=== PATIENT | male | born 1975 | race Caucasian/White ===

== ENCOUNTER 2021-07-08 17:42 | Inpatient (IN) | payer OTHER ==
[2021-07-08] MEDS ORDERED: LORazepam 2 MG/ML INJ IM STA (17:50)
[2021-07-08] MEDS ORDERED: diphenhydrAMINE 50 MG/ML 1 ML VIAL IM STA (17:50)
[2021-07-08] MEDS ORDERED: HALOPERIDOL LACTATE 5 MG/ML 1 ML VIAL IM STA (17:50)
[2021-07-08 19:22] LABS: Basophils # (A) 0.1 k/uL (0-0.2); Basophils % (A) 0 %; Eosinophils # (A) 0.2 k/uL (0-0.7); Eosinophils % (A) 1 %; HCT 39.5 % (39.0-53.0); HGB 13.6 gm/dL (13.0-17.5); Lymphocytes # (A) 1.3 k/uL (1.0-4.8); Lymphocytes % (A) 8 %; MCH 28.5 pg (25.0-35.0); MCHC 34.5 g/dL (31.0-37.0); MCV 82.5 fL (80.0-100.0); Mean Platelet Volume 8.1; Monocytes # (A) 0.6 k/uL (0-1.0); Monocytes % (A) 4 %; Neutrophils # (A) 13.5 k/uL (1.3-7.7); Neutrophils % (A) 86 %; Platelet Count 362 k/uL (150-450); RBC 4.78 m/uL (4.30-5.90); RDW 13.5 % (11.5-15.5); WBC 15.7 k/uL (3.8-10.6)
[2021-07-08 19:29] LABS: Lactic Acid, Venous 1.8 mmol/L (0.7-2.0)
[2021-07-08 19:35] LABS: ALT 23 U/L (4-49); AST 28 U/L (17-59); African American GFR (CKD) 41 (>60 ml/min/1.73 sqM); Albumin 4.1 g/dL (3.5-5.0); Alcohol <10 mg/dL; Alkaline Phosphatase 84 U/L (38-126); Anion Gap 12 mmol/L; Blood Urea Nitrogen 28 mg/dL (9-20); Calcium 9.5 mg/dL (8.4-10.2); Carbon Dioxide 18 mmol/L (22-30); Chloride 108 mmol/L (98-107); Creatine Kinase 387 U/L (55-170); Glucose 127 mg/dL (74-99); Lipase 44 U/L (23-300); Magnesium 2.1 mg/dL (1.6-2.3); Non-African American GFR(CKD) 36 (>60 ml/min/1.73 sqM); Potassium 3.8 mmol/L (3.5-5.1); Sodium 138 mmol/L (137-145); Total Bilirubin 0.4 mg/dL (0.2-1.3); Total Protein 7.2 g/dL (6.3-8.2)
--- NOTE | 2021-07-08 20:03 | XR ---
EXAMINATION TYPE: XR chest 1V portable DATE OF EXAM: 07/08/2021 COMPARISON: 04/16/2011 HISTORY: Confusion TECHNIQUE: Single view FINDINGS: There is mild increased pulmonary interstitial density. Heart size is normal. There is no g ross heart failure. There is poor inspiration. IMPRESSION: Poor inspiration. Mild increased interstitial markings compared to old exam. No pulmonary consolidation or heart failure.
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
[2021-07-08 20:19] LABS: Appearance,Urine Clear (Clear); Bacteria,Urine Occasional /hpf; Bilirubin,Urine Negative (Negative); Blood,Urine Negative (Negative); Color,Urine Yellow; Glucose,Urine (UA) Negative (Negative); Hyaline Casts,Urine 5 /lpf (0-2); Ketones,Urine Negative (Negative); Leukocyte Esterase,Urine Negative (Negative); Mucus,Urine Occasional /hpf; Nitrite,Urine Negative (Negative); PH, Urine 5.5 (5.0-8.0); Protein,Urine 1+ (Negative); RBC,Urine 1 /hpf (0-5); Specific Gravity,Urine 1.026 (1.001-1.035); Squamous Epithelial Cell,Urine <1 /hpf (0-4); Urobilinogen,Urine <2.0 mg/dL (<2.0); WBC,Urine 3 /hpf (0-5)
[2021-07-08 20:31] LABS: Amphetamine Screen,Urine Detected (NotDetected); Barbiturate Screen,Urine Not Detected (NotDetected); Benzodiazepines Screen,Urine Not Detected (NotDetected); Cocaine Screen,Urine Not Detected (NotDetected); Methadone Screen, Urine Not Detected (NotDetected); Opiate Screen,Urine Not Detected (NotDetected); Oxycodone Screen, Urine Not Detected (NotDetected); Phencyclidine Screen,Urine Not Detected (NotDetected); Tricyclic Antidepressant,Urine Not Detected (NotDetected); Urn Cannabinoid Scrn Detected (NotDetected)
--- NOTE | 2021-07-08 20:33 | CT ---
EXAMINATION TYPE: CT brain wo con DATE OF EXAM: 07/08/2021 COMPARISON: 12/06/2009 HISTORY: Altered mental status. CT DLP: mGycm Automated exposure control for dose reduction was used. Ventricles have normal size. There is no mass effect nor midline shift. There is no sign of intracran ial hemorrhage. The calvarium is intact. Skull base is intact. IMPRESSION: Normal unenhanced head CT scan. No change.
[2021-07-08] MEDS ORDERED: NALOXONE 0.4 MG/ML 1 ML VIAL IV PRN (22:18)
[2021-07-08] MEDS ORDERED: SODIUM CHLORIDE 0.9% 1,000 ML IV STA (22:23)
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
[2021-07-08] MEDS: SODIUM CHLORIDE 0.9% 1,000 ML IV SCH (22:49)
[2021-07-09] MEDS: SODIUM CHLORIDE 0.9% 1,000 ML IV SCH (07:15)
[2021-07-09 10:39] LABS: African American GFR (CKD) 59.4 (60.0-200.0); Albumin 3.8 g/dL (3.8-4.9); Albumin/Globulin Ratio 1.58 (1.60-3.17); BUN/Creat Ratio 15.13 Ratio (12.00-20.00); Blood Urea Nitrogen 24.2 mg/dL (9.0-27.0); Globulin 2.4 g/dL (1.6-3.3); Non-African American GFR(CKD) 51.3 (60.0-200.0); Potassium 4.3 mmol/L (3.5-5.5); Total Bilirubin 0.4 mg/dL (0.30-1.20); Total Protein 6.2 g/dL (6.2-8.2)
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
--- NOTE | 2021-07-09 13:01 | P.PN ---
Subjective Progress Note Date: 07/09/21 No new complaints. Kidney function is improving Objective - Vital Signs Vital signs: Vital Signs Temp 98.7 F 07/09/21 06:46 Pulse 90 07/09/21 10:13 Resp 16 07/09/21 10:13 BP 154/103 07/09/21 10:13 Pulse Ox 98 07/09/21 10:13 Intake & Output 07/08/21 07/09/21 07/09/21 18:59 06:59 18:59 Weight 113.398 kg - Exam Gen: Asleep, resting comfortably HEENT: normocephalic, atraumatic, good hearing acuity, moist mucous membranes Resp: good air exchange, breathing comfortably with no accessory muscle use CVS: good distal perfusion x 4, GI: soft, NTTP, ND : no SPT, no CVAT, hickman catheter not present MSK: no pitting edema, no clubbing Neuro: non-focal, moving all extremities - Labs CBC & Chem 7: 07/08/21 19:12 07/09/21 06:50 Labs: Abnormal Lab Results - Last 24 Hours (Table) 07/08/21 07/08/21 07/08/21 Range/Units 19:12 19:12 19:12 WBC 15.7 H (3.8-10.6) k/uL Neutrophils # 13.5 H (1.3-7.7) k/uL Chloride 108 H (98-107) mmol/L Carbon Dioxide 18 L (22-30) mmol/L BUN 28 H (9-20) mg/dL Creatinine 2.16 H (0.66-1.25) mg/dL Est GFR (CKD-EPI)AfAm (60.0-200.0) Est GFR (CKD-EPI)NonAf (60.0-200.0) Glucose 127 H (74-99) mg/dL Creatine Kinase 387 H (55-170) U/L Albumin/Globulin Ratio (1.60-3.17) g/dL Urine Protein (Negative) Urine Bacteria (None) /hpf Hyaline Casts (0-2) /lpf Urine Mucus (None) /hpf Ur Amphetamines Screen Detected H (NotDetected) U Methamphetamines Scrn Detected H (NotDetected) U Marijuana (THC) Screen Detected H (NotDetected) 07/08/21 07/09/21 Range/Units 20:01 06:50 WBC (3.8-10.6) k/uL Neutrophils # (1.3-7.7) k/uL Chloride (98-107) mmol/L Carbon Dioxide (22-30) mmol/L BUN (9-20) mg/dL Creatinine 1.6 H (0.66-1.25) mg/dL Est GFR (CKD-EPI)AfAm 59.4 L (60.0-200.0) Est GFR (CKD-EPI)NonAf 51.3 L (60.0-200.0) Glucose (74-99) mg/dL Creatine Kinase (55-170) U/L Albumin/Globulin Ratio 1.58 L (1.60-3.17) g/dL Urine Protein 1+ H (Negative) Urine Bacteria Occasional H (None) /hpf Hyaline Casts 5 H (0-2) /lpf Urine Mucus Occasional H (None) /hpf Ur Amphetamines Screen (NotDetected) U Methamphetamines Scrn (NotDetected) U Marijuana (THC) Screen (NotDetected) Assessment and Plan Assessment: acute psychosis polysubstance abuse DOMINGO psych follow up antipsychotics for aggressive behavior benzo PRN for anxiety and agitation IVF hydration with normal saline seizure precautions 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
[2021-07-09] MEDS: ACETAMINOPHEN TAB 325 MG TAB PO PRN (15:05)
[2021-07-09] MEDS ORDERED: hydrALAZINE HCL 25 MG TAB PO STA (23:37)
[2021-07-10] MEDS: ACETAMINOPHEN TAB 325 MG TAB PO PRN (03:39)
[2021-07-10] MEDS: SODIUM CHLORIDE 0.9% 1,000 ML IV SCH ×3 (05:41→07:49)
[2021-07-10 06:24] LABS: Basophils # (A) 0.1 k/uL (0-0.2); Basophils % (A) 1 %; Eosinophils # (A) 0.3 k/uL (0-0.7); Eosinophils % (A) 3 %; HCT 37.8 % (39.0-53.0); HGB 12.8 gm/dL (13.0-17.5); Lymphocytes # (A) 2.4 k/uL (1.0-4.8); Lymphocytes % (A) 28 %; MCH 28.7 pg (25.0-35.0); MCV 84.4 fL (80.0-100.0); Mean Platelet Volume 8.5; Monocytes # (A) 0.6 k/uL (0-1.0); Monocytes % (A) 7 %; Neutrophils # (A) 5.2 k/uL (1.3-7.7); Neutrophils % (A) 60 %; Platelet Count 293 k/uL (150-450); RBC 4.48 m/uL (4.30-5.90); RDW 13.4 % (11.5-15.5); WBC 8.7 k/uL (3.8-10.6)
[2021-07-10 09:29] LABS: African American GFR (CKD) 69.8 (60.0-200.0); BUN/Creat Ratio 12.29 Ratio (12.00-20.00); Blood Urea Nitrogen 17.2 mg/dL (9.0-27.0); Calcium 8.9 mg/dL (8.7-10.3); Magnesium 2.1 mg/dL (1.5-2.4); Non-African American GFR(CKD) 60.2 (60.0-200.0)
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
[2021-07-10 12:42] VITALS: BP 166/101; PULSE 75; RESP 18; TEMP 97.8
== END 2021-07-10 14:53 | DRG 885 ==
LOC: EC 17:42 → 5NMEDONC 22:18 → 3MHU 07-10 14:44
PROVIDERS: ADMIT Internal Medicine; ATTEND Internal Medicine
DX: F23 Brief psychotic disorder (principal); N17.9 Acute kidney failure, unspecified; S21.139A Puncture wound without foreign body of unspecified front wall of thorax without penetration into thoracic cavity, initial encounter; E87.2 Acidosis; E86.0 Dehydration; Z20.822 Contact with and (suspected) exposure to COVID-19; F19.10 Other psychoactive substance abuse, uncomplicated; S21.032A Puncture wound without foreign body of left breast, initial encounter; F15.90 Other stimulant use, unspecified, uncomplicated; R45.6 Violent behavior; F41.9 Anxiety disorder, unspecified; F17.210 Nicotine dependence, cigarettes, uncomplicated; Z71.6 Tobacco abuse counseling; Z78.1 Physical restraint status; Z56.0 Unemployment, unspecified; Z65.3 Problems related to other legal circumstances; Z88.0 Allergy status to penicillin; W49.9XXA Exposure to other inanimate mechanical forces, initial encounter; Z81.8 Family history of other mental and behavioral disorders
CPT/HCPCS: 36415; 70450; 71045; 80048; 80053; 80306; 80320; 81001; 82140; 82550; 83605; 83690; 83735; 85025; 87635; 96372; 99285

== ENCOUNTER 2021-07-10 13:59 | Inpatient (IN) | payer MEDICAID, OTHER ==
[2021-07-10] MEDS ORDERED: HALOPERIDOL LACTATE 5 MG/ML 1 ML VIAL IM PRN (15:10)
[2021-07-10] MEDS ORDERED: LORazepam 2 MG/ML INJ IM PRN (15:11)
[2021-07-10] MEDS ORDERED: MAG HYDROX/AL HYDROX/SIMETH 30 ML CUP PO PRN (15:12)
[2021-07-10] MEDS ORDERED: MAGNESIUM HYDROXIDE 2,400 MG/10 ML CUP PO PRN (15:12)
[2021-07-10 16:44] LABS: Appearance,Urine Clear (Clear); Bilirubin,Urine Negative (Negative); Blood,Urine Negative (Negative); Color,Urine Light Yellow; Glucose,Urine (UA) Negative (Negative); Ketones,Urine Negative (Negative); Leukocyte Esterase,Urine Negative (Negative); Nitrite,Urine Negative (Negative); PH, Urine 5.5 (5.0-8.0); Protein,Urine Negative (Negative); Specific Gravity,Urine 1.007 (1.001-1.035); Urobilinogen,Urine <2.0 mg/dL (<2.0)
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
[2021-07-10] MEDS: LORazepam 1 MG TAB PO PRN (21:26)
[2021-07-10] MEDS: ACETAMINOPHEN TAB 325 MG TAB PO PRN (21:26)
[2021-07-11] MEDS: ACETAMINOPHEN TAB 325 MG TAB PO PRN ×4 (02:19→20:38)
[2021-07-11] MEDS: LORazepam 1 MG TAB PO PRN ×3 (02:19→16:44)
[2021-07-11] MEDS: NICOTINE 14MG/24HR PATCH TRANSDERM SCH (08:36)
[2021-07-11] MEDS ORDERED: amLODIPine 5 MG TAB PO SCH (09:00)
[2021-07-11 09:55] LABS: ALT 24 U/L (4-49); AST 31 U/L (17-59); African American GFR (CKD) 76 (>60 ml/min/1.73 sqM); Albumin 3.5 g/dL (3.5-5.0); Alkaline Phosphatase 72 U/L (38-126); Anion Gap 8 mmol/L; Blood Urea Nitrogen 12 mg/dL (9-20); Calcium 9.3 mg/dL (8.4-10.2); Carbon Dioxide 22 mmol/L (22-30); Chloride 110 mmol/L (98-107); Glucose 96 mg/dL (74-99); Non-African American GFR(CKD) 66 (>60 ml/min/1.73 sqM); Potassium 4.3 mmol/L (3.5-5.1); Sodium 140 mmol/L (137-145); Total Bilirubin 0.4 mg/dL (0.2-1.3); Total Protein 6.6 g/dL (6.3-8.2)
[2021-07-11 10:26] LABS: Basophils # (A) 0.1 k/uL (0-0.2); Basophils % (A) 1 %; Eosinophils # (A) 0.3 k/uL (0-0.7); Eosinophils % (A) 4 %; HCT 41.8 % (39.0-53.0); HGB 13.8 gm/dL (13.0-17.5); Lymphocytes # (A) 1.9 k/uL (1.0-4.8); Lymphocytes % (A) 30 %; MCH 28.5 pg (25.0-35.0); MCV 86.3 fL (80.0-100.0); Mean Platelet Volume 8.9; Monocytes # (A) 0.3 k/uL (0-1.0); Monocytes % (A) 5 %; Neutrophils # (A) 3.8 k/uL (1.3-7.7); Neutrophils % (A) 59 %; Platelet Count 347 k/uL (150-450); RBC 4.84 m/uL (4.30-5.90); WBC 6.4 k/uL (3.8-10.6)
[2021-07-11] MEDS ORDERED: amLODIPine 5 MG TAB PO STA (10:52)
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
[2021-07-11] MEDS: haloperidoL 5 MG TAB PO PRN (18:34)
[2021-07-11] MEDS ORDERED: hydrALAZINE HCL 10 MG TAB PO STA (18:50)
[2021-07-11] MEDS ORDERED: QUEtiapine 50 MG TAB PO SCH (21:00)
[2021-07-12] MEDS: hydrALAZINE HCL 10 MG TAB PO SCH ×3 (02:24→20:19)
[2021-07-12] MEDS: amLODIPine 10 MG TAB PO SCH (08:59)
[2021-07-12] MEDS: ACETAMINOPHEN TAB 325 MG TAB PO PRN ×4 (09:00→20:20)
[2021-07-12] MEDS: NICOTINE 14MG/24HR PATCH TRANSDERM SCH (09:03)
[2021-07-12] MEDS: LORazepam 1 MG TAB PO PRN ×4 (09:31→21:35)
--- NOTE | 2021-07-12 10:24 | P.PN ---
Progress Note - Text Progress Note Date: 07/12/21 Interval History: Patient was seen resting in bed and was directable and agreeable to speak with assembly instructions writer in his room. Patient reports that he is feeling better. He is currently not reporting any suicidal or homicidal ideation, intention, and/or plan. He is currently denying any auditory or visual hallucinations. The patient expresses regret for his actions and attributes his bizarre and opiate behavior to the methamphetamine use as well as his sleep deprivation. He is currently denying any delusions or paranoia at this time. He has been adherent with his Seroquel and is not endorsing any significant side effects. He continues to be wary about taking oral medications for his mental health issues. He reports that he does not believe in psychotropic medications but will take them if it means that he will be discharged. He does express a strong desire to follow up outpatient. The patient expresses strong desire to stop methamphetamines and marijuana abuse due to his bizarre and psychotic episode that he experienced. Mental Status Exam: General Appearance: Patient appears to be stated age is alert, directable, and cooperative. Behavior: Patient is calmly seated without any agitated behavior. Speech: Patient's speech is fluent and nonpressured. Mood/Affect: Mood is improving mildly, affect is congruent and constricted. Suicidality/Homicidality: Patient denies having any suicidal or homicidal ideation intent or plan. Perceptions: Patient denies any visual hallucinations and denies any auditory hallucinations Though content/process: There is no evidence of any delusional thought content and thought process is linear and goal-directed. Memory and concentration: AOX3, grossly intact for the purposes of this session Judgment and insight: Improving mildly Vital Signs Temp 97.7 F 07/12/21 02:35 Pulse 82 07/12/21 02:35 Resp 16 07/12/21 02:35 BP 179/108 07/12/21 02:35 Pulse Ox 99 07/10/21 14:40 Laboratory Results - Last 24 Hours 07/11/21 07/11/21 07/11/21 09:02 09:02 09:02 WBC 6.4 RBC 4.84 Hgb 13.8 Hct 41.8 MCV 86.3 MCH 28.5 MCHC 33.0 RDW 14.0 Plt Count 347 MPV 8.9 Neutrophils % 59 Lymphocytes % 30 Monocytes % 5 Eosinophils % 4 Basophils % 1 Neutrophils # 3.8 Lymphocytes # 1.9 Monocytes # 0.3 Eosinophils # 0.3 Basophils # 0.[address] Glu mg/dL 114 Hemoglobin A1c 5.6 Triglycerides 135.00 Cholesterol 177.00 HDL Cholesterol 27.10 L TSH 1.980 Assessment Acute psychosis Rule out schizophrenia versus substance-induced psychosis Polysubstance abuse - methamphetamines, marijuana Nicotine dependence Plan: -Patient continues to meet criteria for inpatient psychiatric admission for symptom stabilization and safety. Patient has signed adult voluntary form and medication consent and was placed in patient's chart. -Medications: Increase Seroquel to 75 mg by mouth at bedtime for psychosis -When necessary Ativan and Haldol for agitation/aggression. -NRT - nicotine patch -SW on board for discharge planning. Encouraged the patient to participate in milieu.
[2021-07-12] MEDS ORDERED: QUEtiapine 25 MG TAB PO SCH (21:00)
[2021-07-12] MEDS: haloperidoL 5 MG TAB PO PRN (21:35)
[2021-07-13 06:52] VITALS: BP 159/99; PULSE 65; RESP 18; TEMP 98.6
[2021-07-13] MEDS: ACETAMINOPHEN TAB 325 MG TAB PO PRN ×2 (08:18→12:34)
[2021-07-13] MEDS: hydrALAZINE HCL 10 MG TAB PO SCH (08:18)
[2021-07-13] MEDS: LORazepam 1 MG TAB PO PRN (08:19)
[2021-07-13] MEDS: amLODIPine 10 MG TAB PO SCH (08:19)
[2021-07-13] MEDS: NICOTINE 14MG/24HR PATCH TRANSDERM SCH (08:33)
[2021-07-13] MEDS ORDERED: IBUPROFEN 600 MG TAB PO STA (10:12)
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
== END 2021-07-13 12:55 | disposition home or self-care (01) | DRG 897 ==
LOC: 3MHU 14:40
PROVIDERS: ADMIT Psychiatry & Neurology Psychiatry; ATTEND Psychiatry & Neurology Psychiatry
DX: F15.159 Other stimulant abuse with stimulant-induced psychotic disorder, unspecified (principal); F12.10 Cannabis abuse, uncomplicated; F17.210 Nicotine dependence, cigarettes, uncomplicated; I10 Essential (primary) hypertension; Z72.820 Sleep deprivation; Z79.899 Other long term (current) drug therapy
CPT/HCPCS: 80053; 80061; 81003; 83036; 84443; 85025

== ENCOUNTER 2022-01-15 00:26 | Emergency (ER) | payer MEDICAID, OTHER ==
[2022-01-15 00:41] VITALS: TEMP 98.4
[2022-01-15] MEDS ORDERED: MORPHINE SULFATE 4 MG/ML SYRINGE IVP STA (01:50)
[2022-01-15] MEDS ORDERED: PROCHLORPERAZINE INJ 10 MG/2 ML VIAL IVP STA (01:50)
[2022-01-15] MEDS ORDERED: SODIUM CHLORIDE 0.9% 1,000 ML IV STA (01:50)
[2022-01-15 01:53] LABS: Basophils # (A) 0.1 k/uL (0-0.2); Basophils % (A) 1 %; Eosinophils # (A) 0.3 k/uL (0-0.7); Eosinophils % (A) 2 %; HCT 42.1 % (39.0-53.0); HGB 13.3 gm/dL (13.0-17.5); Lymphocytes # (A) 2.5 k/uL (1.0-4.8); Lymphocytes % (A) 22 %; MCH 27.3 pg (25.0-35.0); MCHC 31.7 g/dL (31.0-37.0); MCV 86.1 fL (80.0-100.0); Mean Platelet Volume 7.9; Monocytes # (A) 0.5 k/uL (0-1.0); Monocytes % (A) 4 %; Neutrophils # (A) 8.2 k/uL (1.3-7.7); Neutrophils % (A) 70 %; Platelet Count 323 k/uL (150-450); RBC 4.89 m/uL (4.30-5.90); RDW 14.8 % (11.5-15.5); WBC 11.7 k/uL (3.8-10.6)
[2022-01-15 02:13] LABS: ALT 20 U/L (4-49); AST 31 U/L (17-59); African American GFR (CKD) >90 (>60 ml/min/1.73 sqM); Albumin 4.3 g/dL (3.5-5.0); Alkaline Phosphatase 82 U/L (38-126); Anion Gap 8 mmol/L; Blood Urea Nitrogen 15 mg/dL (9-20); Calcium 9.6 mg/dL (8.4-10.2); Carbon Dioxide 23 mmol/L (22-30); Chloride 110 mmol/L (98-107); Glucose 107 mg/dL (74-99); Non-African American GFR(CKD) 81 (>60 ml/min/1.73 sqM); Potassium 3.9 mmol/L (3.5-5.1); Sodium 141 mmol/L (137-145); Total Bilirubin 0.6 mg/dL (0.2-1.3); Total Protein 7.3 g/dL (6.3-8.2)
[2022-01-15 02:25] LABS: Creatine Kinase MB 6.8 ng/mL (0.0-2.4); Troponin I 0.017 ng/mL (0.000-0.034)
--- NOTE | 2022-01-15 02:47 | ED ---
Nausea/Vomiting/Diarrhea HPI - General Chief complaint: Nausea/Vomiting/Diarrhea Stated complaint: Fever, Lack of appetite, Nausea Time Seen by Provider: 01/15/22 01:49 Source: patient, RN notes reviewed, old records reviewed Mode of arrival: ambulatory Limitations: no limitations - History of Present Illness Initial comments: This is a 46-year-old male to the emergency department for evaluation. Patient comes to ER with multiple complaints nausea vomiting not feeling well headache. Bodyaches and pains recent diagnosis of mono. Patient states that he just hasn't been feeling well he believes he may be having fevers episodically. No travel history no sick contacts. Patient is noncompliant with medications. MD complaint: nausea, vomiting, other (Headache) -: hour(s) Description of Vomiting: watery Associated Abdominal Pain: No Location: diffuse Radiation: none Severity: moderate Severity scale (1-10): 4 Quality: cramping, aching Consistency: intermittent Improves with: none Worsens with: none Associated Symptoms: myalgias, loss of appetite, weakness - Related Data Previous Rx's Medication Instructions Recorded QUEtiapine [SEROquel] 75 mg PO HS 30 Days tab 07/13/21 amLODIPine [Norvasc] 10 mg PO DAILY 30 Days tab 07/13/21 hydrALAZINE HCL [Apresoline] 10 mg PO BID 30 Days tab 07/13/21 Allergies Allergy/AdvReac Type Severity Reaction Status Date / Time Penicillins Allergy Anaphylaxis Verified 01/15/22 00:41 Review of Systems ROS Statement: Those systems with pertinent positive or pertinent negative responses have been documented in the HPI. ROS Other: All systems not noted in ROS Statement are negative. Past Medical History Past Medical History: GERD/Reflux, Hypertension Additional Past Medical History / Comment(s): mono History of Any Multi-Drug Resistant Organisms: None Reported Past Surgical History: No Surgical Hx Reported Past Anesthesia/Blood Transfusion Reactions: Family Hisory of Malignant Hyperthermia Past Psychological History: Anxiety, Depression Smoking Status: Current some day smoker Past Alcohol Use History: None Reported Past Drug Use History: Marijuana, Methamphetamine - Past Family History family Family Medical History: Liver Disease General Exam Limitations: no limitations General appearance: alert, in no apparent distress Head exam: Present: atraumatic, normocephalic, normal inspection Eye exam: Present: normal appearance, PERRL, EOMI. Absent: scleral icterus, conjunctival injection, periorbital swelling ENT exam: Present: normal exam, mucous membranes moist Neck exam: Present: normal inspection. Absent: tenderness, meningismus, lymphadenopathy Respiratory exam: Present: normal lung sounds bilaterally. Absent: respiratory distress, wheezes, rales, rhonchi, stridor Cardiovascular Exam: Present: regular rate, normal rhythm, normal heart sounds. Absent: systolic murmur, diastolic murmur, rubs, gallop, clicks GI/Abdominal exam: Present: soft, normal bowel sounds. Absent: distended, tenderness, guarding, rebound, rigid Extremities exam: Present: normal inspection, full ROM, normal capillary refill. Absent: tenderness, pedal edema, joint swelling, calf tenderness Back exam: Present: normal inspection Neurological exam: Present: alert, oriented X3, CN II-XII intact Psychiatric exam: Present: normal affect, normal mood Skin exam: Present: warm, dry, intact, normal color. Absent: rash Course Vital Signs 01/15/22 01/15/22 01/15/22 00:37 01:31 03:56 Temperature 98.4 F Pulse Rate 96 69 Respiratory 22 18 Rate Blood Pressure 223/114 208/131 184/122 O2 Sat by Pulse 99 98 Oximetry - Reevaluation(s) Reevaluation #1: 01/15/22 03:32 Medical record is reviewed Reevaluation #2: 01/15/22 04:00 Symptoms have been improved Reevaluation #3: 01/15/22 04:00 Blood pressure is improved patient feels improved Reevaluation #4: 01/15/22 04:01 Patient informed of results and questions answered Medical Decision Making - Medical Decision Making 46 male to the ER for evaluation patient resents today for evaluation regards to multiple complaints Shorty nausea vomiting symptoms are improved here in the ER patient can be discharged home - Lab Data Result diagrams: 01/15/22 01:41 01/15/22 01:41 Lab Results 01/15/22 01/15/22 01/15/22 Range/Units 01:41 01:41 01:41 WBC 11.7 H (3.8-10.6) k/uL RBC 4.89 (4.30-5.90) m/uL Hgb 13.3 (13.0-17.5) gm/dL Hct 42.1 (39.0-53.0) % MCV 86.1 (80.0-100.0) fL MCH 27.3 (25.0-35.0) pg MCHC 31.7 (31.0-37.0) g/dL RDW 14.8 (11.5-15.5) % Plt Count 323 (150-450) k/uL MPV 7.9 Neutrophils % 70 % Lymphocytes % 22 % Monocytes % 4 % Eosinophils % 2 % Basophils % 1 % Neutrophils # 8.2 H (1.3-7.7) k/uL Lymphocytes # 2.5 (1.0-4.8) k/uL Monocytes # 0.5 (0-1.0) k/uL Eosinophils # 0.3 (0-0.7) k/uL Basophils # 0.1 (0-0.2) k/uL Sodium 141 (137-145) mmol/L Potassium 3.9 (3.5-5.1) mmol/L Chloride 110 H (98-107) mmol/L Carbon Dioxide 23 (22-30) mmol/L Anion Gap 8 mmol/L BUN 15 (9-20) mg/dL Creatinine 1.10 (0.66-1.25) mg/dL Est GFR (CKD-EPI)AfAm >90 (>60 ml/min/1.73 sqM) Est GFR (CKD-EPI)NonAf 81 (>60 ml/min/1.73 sqM) Glucose 107 H (74-99) mg/dL Plasma Lactic Acid Moustapha 0.9 (0.7-2.0) mmol/L Calcium 9.6 (8.4-10.2) mg/dL Total Bilirubin 0.6 (0.2-1.3) mg/dL AST 31 (17-59) U/L ALT 20 (4-49) U/L Alkaline Phosphatase 82 (38-126) U/L Total Creatine Kinase (55-170) U/L CK-MB (CK-2) (0.0-2.4) ng/mL CK-MB (CK-2) Rel Index Troponin I (0.000-0.034) ng/mL Total Protein 7.3 (6.3-8.2) g/dL Albumin 4.3 (3.5-5.0) g/dL Heterophile Antibody (Negative) 01/15/22 01/15/22 Range/Units 01:41 01:55 WBC (3.8-10.6) k/uL RBC (4.30-5.90) m/uL Hgb (13.0-17.5) gm/dL Hct (39.0-53.0) % MCV (80.0-100.0) fL MCH (25.0-35.0) pg MCHC (31.0-37.0) g/dL RDW (11.5-15.5) % Plt Count (150-450) k/uL MPV Neutrophils % % Lymphocytes % % Monocytes % % Eosinophils % % Basophils % % Neutrophils # (1.3-7.7) k/uL Lymphocytes # (1.0-4.8) k/uL Monocytes # (0-1.0) k/uL Eosinophils # (0-0.7) k/uL Basophils # (0-0.2) k/uL Sodium (137-145) mmol/L Potassium (3.5-5.1) mmol/L Chloride (98-107) mmol/L Carbon Dioxide (22-30) mmol/L Anion Gap mmol/L BUN (9-20) mg/dL Creatinine (0.66-1.25) mg/dL Est GFR (CKD-EPI)AfAm (>60 ml/min/1.73 sqM) Est GFR (CKD-EPI)NonAf (>60 ml/min/1.73 sqM) Glucose (74-99) mg/dL Plasma Lactic Acid Moustapha (0.7-2.0) mmol/L Calcium (8.4-10.2) mg/dL Total Bilirubin (0.2-1.3) mg/dL AST (17-59) U/L ALT (4-49) U/L Alkaline Phosphatase (38-126) U/L Total Creatine Kinase 375 H (55-170) U/L CK-MB (CK-2) 6.8 H (0.0-2.4) ng/mL CK-MB (CK-2) Rel Index 1.8 Troponin I 0.017 (0.000-0.034) ng/mL Total Protein (6.3-8.2) g/dL Albumin (3.5-5.0) g/dL Heterophile Antibody Negative (Negative) - Radiology Data Radiology results: report reviewed (CT brain CT head neck is negative for acute disease), image reviewed Disposition Clinical Impression: Dehydration, Nausea & vomiting Disposition: HOME SELF-CARE Condition: Good Instructions (If sedation given, give patient instructions): Acute Nausea and Vomiting (ED) Is patient prescribed a controlled substance at d/c from ED?: No Referrals: None,Stated [Primary Care Provider] - 1-2 days
[2022-01-15] MEDS ORDERED: LABETALOL SYRINGE 5 MG/ML IVP STA (03:31)
--- NOTE | 2022-01-15 03:33 | CT ---
EXAMINATION TYPE: CT brain wo con DATE OF EXAM: 01/15/2022 COMPARISON: 07/08/2021 HISTORY: [facility] CT DLP: 1140.3 mGycm Automated exposure control for dose reduction was used. Ventricles have normal size. There is no mass effect or midline shift. No sign of intracranial hemorr deidra. Calvarium is intact. There is normal aeration of the mastoid sinuses. IMPRESSION: Negative unenhanced head CT scan. No change.
--- NOTE | 2022-01-15 03:46 | CT ---
EXAMINATION TYPE: CT angio head neck DATE OF EXAM: 01/15/2022 COMPARISON: None HISTORY: [facility] CT DLP: 777 mGycm Automated exposure control for dose reduction was used. CONTRAST: Performed with IV Contrast, patient injected with 65 mL of Isovue 370. There are Three-D postprocessed images. Images obtained from the aortic arch to the vertex of the bra in without IV contrast. There is normal branching pattern of the great vessels on the aortic arch. There is arterial flow in the common internal and external carotid arteries bilaterally. There is wide patency of the carotid a rtery bifurcations. No evidence of carotid or vertebral artery aneurysm or dissection. There is symme tric normal appearing vertebral arteries. There is arterial flow in the vertebral basilar artery syst em. There is arterial flow in the anterior middle and posterior cerebral arteries bilaterally. No evidenc e of mass effect. No intracranial aneurysm or neovascularity. There is normal enhancement of the veno us sinuses. No evidence of intracranial hemodynamic arterial stenosis. IMPRESSION: Negative CT angiogram of the neck. Negative CT angiogram of the brain.
[2022-01-15] MEDS ORDERED: ONDANSETRON 4 MG ODT STARTER PACK 2 TAB BTL PO STA (03:58)
[2022-01-15 03:59] VITALS: RESP 18
[2022-01-15] MEDS ORDERED: LISINOPRIL-HCTZ 10-12.5 MG 1 EACH TAB PO STA (04:04)
[2022-01-15] MEDS ORDERED: METOPROLOL TARTRATE 50 MG TAB PO STA (04:04)
[2022-01-15 04:30] VITALS: BP 181/122; PULSE 77
== END 2022-01-15 04:34 | disposition home or self-care (01) ==
LOC: EC 00:26
DX: R11.2 Nausea with vomiting, unspecified (principal); E86.0 Dehydration; I10 Essential (primary) hypertension; F17.200 Nicotine dependence, unspecified, uncomplicated; Z88.0 Allergy status to penicillin
CPT/HCPCS: 36415; 80053; 82550; 82553; 83605; 84484; 85025; 86308; 70496; 70450; 70498; 99285; 96374; 96375; 96361; J2270; J0780; S0119; Q9967

== ENCOUNTER 2022-03-10 13:10 | Inpatient (IN) | payer OTHER ==
[2022-03-10] MEDS ORDERED: MORPHINE SULFATE 2 MG/ML SYRINGE IVP STA ×2 (13:27→14:35)
[2022-03-10] MEDS ORDERED: LORazepam 2 MG/ML INJ IV STA (13:27)
[2022-03-10] MEDS: NITROGLYCERIN SL TABS 0.4 MG TAB SUBLINGUAL STA ×2 (13:33→13:41)
--- NOTE | 2022-03-10 13:37 | ED ---
General Adult HPI - General Chief complaint: Chest Pain Stated complaint: chest pain Time Seen by Provider: 03/10/22 13:16 Source: patient, RN notes reviewed, old records reviewed Mode of arrival: wheelchair Limitations: no limitations - History of Present Illness Initial comments: 46-year-old male history of hypertension presenting for evaluation of chest pain. Pain is been present for the past one day. Patient states this is worse with any exertion. It does radiate to the left arm. He has no prior history of CAD. He states he has a history of hypertension but has not had a primary care physician and has not been on any medication recently. No cough or fever. He noted some minimal swelling in the bilateral lower extremities yesterday. - Related Data Home Medications Medication Instructions Recorded Confirmed No Known Home Medications 03/10/22 03/10/22 Allergies Allergy/AdvReac Type Severity Reaction Status Date / Time Penicillins Allergy Anaphylaxis Verified 03/10/22 14:58 Review of Systems ROS Statement: Those systems with pertinent positive or pertinent negative responses have been documented in the HPI. ROS Other: All systems not noted in ROS Statement are negative. Past Medical History Past Medical History: GERD/Reflux, Hypertension Additional Past Medical History / Comment(s): mono History of Any Multi-Drug Resistant Organisms: None Reported Past Surgical History: No Surgical Hx Reported Past Anesthesia/Blood Transfusion Reactions: Family Hisory of Malignant Hyperthermia Past Psychological History: Anxiety, Depression Smoking Status: Current some day smoker Past Alcohol Use History: None Reported Past Drug Use History: Marijuana, Methamphetamine - Past Family History family Family Medical History: Liver Disease General Exam Limitations: no limitations General appearance: alert, anxious Head exam: Present: atraumatic, normocephalic Eye exam: Present: normal appearance, PERRL ENT exam: Present: normal exam Neck exam: Present: normal inspection. Absent: tenderness, meningismus Respiratory exam: Present: normal lung sounds bilaterally. Absent: respiratory distress, wheezes Cardiovascular Exam: Present: regular rate. Absent: normal rhythm, bradycardia, tachycardia GI/Abdominal exam: Present: soft. Absent: distended, tenderness, guarding Extremities exam: Present: normal inspection, normal capillary refill, pedal edema (trace) Neurological exam: Present: alert, oriented X3, CN II-XII intact. Absent: motor sensory deficit Psychiatric exam: Present: normal affect, normal mood Skin exam: Present: warm, dry, intact. Absent: cyanosis, diaphoretic Course Vital Signs 03/10/22 03/10/22 03/10/22 13:11 13:42 14:01 Temperature 97.6 F Pulse Rate 82 93 76 Respiratory 18 18 18 Rate Blood Pressure 244/146 225/150 207/130 O2 Sat by Pulse 100 99 Oximetry 03/10/22 15:10 Temperature Pulse Rate 68 Respiratory 24 Rate Blood Pressure 229/147 O2 Sat by Pulse 98 Oximetry - Reevaluation(s) Reevaluation #1: 03/10/22 15:[address] Keenan regarding the patient's management, he does recommend nitroglycerin drip for both blood pressure and pain complaints. Will monitor closely. EKG Findings - EKG Comments: EKG Findings:: EKG: Sinus rhythm ST segment depression and T-wave inversion in aVL, V1, V2 and the lateral precordial leads. No ST segment elevation. Rate of 82, SD interval 148, QRS duration 100, QTC 380 Medical Decision Making - Medical Decision Making 46-year-old male presenting with chest pain which began yesterday evening, this is exertional with radiation to bilateral arms. Patient is significantly hypertensive upon arrival. He does not have any pain in his back. Pain is described as a tightness across the chest and bilateral shoulders. No prior history of CAD. Chest x-ray is clear without acute findings. Patient has a normal CBC, normal CMP, elevated troponin at 0.1. He's given aspirin, nitroglycerin, heparin and morphine in the emergency department. He has some initial improvement in pain. He will be monitored very closely both for his blood pressure and his non-ST segment elevated VT. Discussed case with the admitting physician Dr. Mckoy, and Dr. Keenan covering for cardiology. - Lab Data Result diagrams: 03/10/22 13:28 03/10/22 13:28 Lab Results 03/10/22 03/10/22 03/10/22 Range/Units 13:28 13:28 13:28 WBC 10.1 (3.8-10.6) k/uL RBC 5.06 (4.30-5.90) m/uL Hgb 14.6 (13.0-17.5) gm/dL Hct 44.5 (39.0-53.0) % MCV 87.8 (80.0-100.0) fL MCH 28.9 (25.0-35.0) pg MCHC 32.9 (31.0-37.0) g/dL RDW 15.3 (11.5-15.5) % Plt Count 374 (150-450) k/uL MPV 8.1 Neutrophils % 63 % Lymphocytes % 26 % Monocytes % 4 % Eosinophils % 5 % Basophils % 1 % Neutrophils # 6.3 (1.3-7.7) k/uL Lymphocytes # 2.7 (1.0-4.8) k/uL Monocytes # 0.4 (0-1.0) k/uL Eosinophils # 0.5 (0-0.7) k/uL Basophils # 0.1 (0-0.2) k/uL PT 10.8 (9.0-12.0) sec INR 1.0 (<1.2) APTT 27.2 (22.0-30.0) sec D-Dimer 0.29 (<0.60) mg/L FEU Sodium 140 (137-145) mmol/L Potassium 4.7 (3.5-5.1) mmol/L Chloride 112 H (98-107) mmol/L Carbon Dioxide 21 L (22-30) mmol/L Anion Gap 7 mmol/L BUN 17 (9-20) mg/dL Creatinine 1.02 (0.66-1.25) mg/dL Est GFR (CKD-EPI)AfAm >90 (>60 ml/min/1.73 sqM) Est GFR (CKD-EPI)NonAf 89 (>60 ml/min/1.73 sqM) Glucose 113 H (74-99) mg/dL Calcium 9.3 (8.4-10.2) mg/dL Magnesium 1.9 (1.6-2.3) mg/dL Total Bilirubin 0.3 (0.2-1.3) mg/dL AST 31 (17-59) U/L ALT 31 (4-49) U/L Alkaline Phosphatase 103 (38-126) U/L Troponin I (0.000-0.034) ng/mL NT-Pro-B Natriuret Pep pg/mL Total Protein 7.3 (6.3-8.2) g/dL Albumin 4.1 (3.5-5.0) g/dL 03/10/22 03/10/22 Range/Units 13:28 13:28 WBC (3.8-10.6) k/uL RBC (4.30-5.90) m/uL Hgb (13.0-17.5) gm/dL Hct (39.0-53.0) % MCV (80.0-100.0) fL MCH (25.0-35.0) pg MCHC (31.0-37.0) g/dL RDW (11.5-15.5) % Plt Count (150-450) k/uL MPV Neutrophils % % Lymphocytes % % Monocytes % % Eosinophils % % Basophils % % Neutrophils # (1.3-7.7) k/uL Lymphocytes # (1.0-4.8) k/uL Monocytes # (0-1.0) k/uL Eosinophils # (0-0.7) k/uL Basophils # (0-0.2) k/uL PT (9.0-12.0) sec INR (<1.2) APTT (22.0-30.0) sec D-Dimer (<0.60) mg/L FEU Sodium (137-145) mmol/L Potassium (3.5-5.1) mmol/L Chloride (98-107) mmol/L Carbon Dioxide (22-30) mmol/L Anion Gap mmol/L BUN (9-20) mg/dL Creatinine (0.66-1.25) mg/dL Est GFR (CKD-EPI)AfAm (>60 ml/min/1.73 sqM) Est GFR (CKD-EPI)NonAf (>60 ml/min/1.73 sqM) Glucose (74-99) mg/dL Calcium (8.4-10.2) mg/dL Magnesium (1.6-2.3) mg/dL Total Bilirubin (0.2-1.3) mg/dL AST (17-59) U/L ALT (4-49) U/L Alkaline Phosphatase (38-126) U/L Troponin I 0.109 H* (0.000-0.034) ng/mL NT-Pro-B Natriuret Pep 806 pg/mL Total Protein (6.3-8.2) g/dL Albumin (3.5-5.0) g/dL Critical Care Time Critical Care Time: Yes Total Critical Care Time: 35 Disposition Clinical Impression: Acute non-ST elevation myocardial infarction (NSTEMI) Disposition: ADMITTED IP TO THIS HOSP Condition: Serious Is patient prescribed a controlled substance at d/c from ED?: No Time of Disposition: 14:45
[2022-03-10 13:56] LABS: Basophils # (A) 0.1 k/uL (0-0.2); Basophils % (A) 1 %; Eosinophils # (A) 0.5 k/uL (0-0.7); Eosinophils % (A) 5 %; HCT 44.5 % (39.0-53.0); HGB 14.6 gm/dL (13.0-17.5); Lymphocytes # (A) 2.7 k/uL (1.0-4.8); Lymphocytes % (A) 26 %; MCH 28.9 pg (25.0-35.0); MCHC 32.9 g/dL (31.0-37.0); MCV 87.8 fL (80.0-100.0); Mean Platelet Volume 8.1; Monocytes # (A) 0.4 k/uL (0-1.0); Monocytes % (A) 4 %; Neutrophils # (A) 6.3 k/uL (1.3-7.7); Neutrophils % (A) 63 %; Platelet Count 374 k/uL (150-450); RBC 5.06 m/uL (4.30-5.90); RDW 15.3 % (11.5-15.5); WBC 10.1 k/uL (3.8-10.6)
--- NOTE | 2022-03-10 13:57 | XR ---
EXAMINATION TYPE: XR chest 2V DATE OF EXAM: 03/10/2022 COMPARISON: 07/08/2021 INDICATION: Chest pain TECHNIQUE: Frontal and lateral views of the chest are obtained. FINDINGS: The heart size is normal. The pulmonary vasculature is normal. The lungs are clear. IMPRESSION: 1. No acute pulmonary process.
[2022-03-10 14:04] LABS: ALT 31 U/L (4-49); AST 31 U/L (17-59); African American GFR (CKD) >90 (>60 ml/min/1.73 sqM); Albumin 4.1 g/dL (3.5-5.0); Alkaline Phosphatase 103 U/L (38-126); Anion Gap 7 mmol/L; Blood Urea Nitrogen 17 mg/dL (9-20); Calcium 9.3 mg/dL (8.4-10.2); Carbon Dioxide 21 mmol/L (22-30); Chloride 112 mmol/L (98-107); Glucose 113 mg/dL (74-99); Magnesium 1.9 mg/dL (1.6-2.3); Non-African American GFR(CKD) 89 (>60 ml/min/1.73 sqM); Potassium 4.7 mmol/L (3.5-5.1); Sodium 140 mmol/L (137-145); Total Bilirubin 0.3 mg/dL (0.2-1.3); Total Protein 7.3 g/dL (6.3-8.2)
[2022-03-10] MEDS ORDERED: LABETALOL 5 MG/ML VIAL MDV IVP STA (14:04)
[2022-03-10 14:10] LABS: Partial Thromboplastin Time 27.2 sec (22.0-30.0); Prothrombin Time 10.8 sec (9.0-12.0)
[2022-03-10] MEDS ORDERED: ASPIRIN 325 MG TAB PO STA ×2 (14:49→16:11)
[2022-03-10] MEDS ORDERED: HEPARIN SODIUM 1,000 UN/ML (10ML VL) IV ONE (14:50)
[2022-03-10] MEDS ORDERED: HEPARIN SODIUM 1,000 UN/ML (10ML VL) IV PRN (14:50)
[2022-03-10] MEDS ORDERED: MORPHINE SULFATE 2 MG/ML SYRINGE IVP PRN (14:54)
[2022-03-10] MEDS ORDERED: HEPARIN SOD,PORK IN 0.45% NACL 25,000 UNIT in 0.45% NACL 1 250ML.BAG IV SCH (15:00)
[2022-03-10] MEDS ORDERED: NITROGLYCERIN-D5W PMX 50 MG in DEXTROSE/WATER 1 250ML.BAG IV ONE (15:02)
[2022-03-10] MEDS: ATORVASTATIN 80 MG TAB PO SCH (15:23)
[2022-03-10] MEDS ORDERED: NITROGLYCERIN SL TABS 0.4 MG TAB SUBLINGUAL STA (15:35)
--- NOTE | 2022-03-10 15:55 | P.HPIM ---
History of Present Illness H&P Date: 03/10/22 Chief Complaint: Chest pain 46-year-old man with history of hypertension, current smoker presented with substernal chest pain. Patient says that it feels like a squeezing/cramping in nature with radiation to both arms as well as up the neck. Patient rates the pain 10/10. Patient says the pain started yesterday around 1-2 PM and was intermittent, but now is constant, crushing in nature. Patient came to the emergency room for further evaluation. Patient's associated symptoms include diaphoresis. But he denies fevers, chills, nausea, vomiting, palpitations, syncope, presyncope, cough, dyspnea, abdominal pain, dysuria, dyschezia, constipation, diarrhea, numbness/weakness of extremities. In the emergency room, patient is afebrile, 244/146, heart rate 82, 100% on room air. CBC was unremarkable. Chemistries showed a bicarb of 21, otherwise unremarkable. LFTs unremarkable. BNP is 806. Initial troponin is 0.109. Chest x-ray appears normal. EKG showed normal sinus rhythm with ischemic changes predominantly in the lateral leads with ST depressions as well as borderline septal changes. Patient says that his pain improved from 10 out 10-5 out of 10 with initiation of a nitro drip as well as dissolvable sublingual nitro. All Systems reviewed and pertinent positives and negatives noted in HPI, all other symptoms are negative Gen: in no apparent distress, resting comfortably in bed Eyes: PERRL, no scleral injection or icterus HENT: normocephalic, atraumatic, good hearing acuity, moist mucous membranes Neck: no tracheal deviation, full range of motion Resp: good air exchange, breathing comfortably with no accessory muscle use, no tactile fremitus, clear to auscultation bilaterally CVS: good distal perfusion x 4, no pitting edema, regular rate and rhythm, no murmurs GI: soft, NTTP, ND, no hepatosplenomegaly : no suprapubic tenderness, no CVAT, hickman catheter not present MSK: no clubbing, no cyanosis, no noted contractures of extremities Skin: no noted rashes, petechiae; temperature of skin is appropriate Neuro: moving all extremities without signs of weakness, CN II-XII intact Psych: cooperative, euthymic mood, insight and judgment intact Labs and imaging reviewed as above Assessment/plan: Non-ST elevation myocardial infarction Hypertensive emergency -Admit to inpatient, telemetry -Cardiology consult -Patient to go to left heart cath today -Nitro drip, heparin drip -Aspirin, statin, beta kemi -Lipid panel, A1c, TSH -Trend troponins -EKG/nitro when necessary Patient is full code DVT prophylaxis with heparin drip Past Medical History Past Medical History: GERD/Reflux, Hypertension Additional Past Medical History / Comment(s): mono History of Any Multi-Drug Resistant Organisms: None Reported Past Surgical History: No Surgical Hx Reported Past Anesthesia/Blood Transfusion Reactions: Family Hisory of Malignant Hyperthermia Past Psychological History: Anxiety, Depression Smoking Status: Current some day smoker Past Alcohol Use History: None Reported Past Drug Use History: Marijuana, Methamphetamine - Past Family History family Family Medical History: Liver Disease Medications and Allergies Home Medications Medication Instructions Recorded Confirmed Type No Known Home Medications 03/10/22 03/10/22 History Allergies Allergy/AdvReac Type Severity Reaction Status Date / Time Penicillins Allergy Anaphylaxis Verified 03/10/22 14:58 Physical Exam Osteopathic Statement: *. No significant issues noted on an osteopathic structural exam other than those noted in the History and Physical/Consult. Vitals: Vital Signs Temp Pulse Resp BP Pulse Ox 03/10/22 15:10 68 24 229/147 98 03/10/22 14:01 76 18 207/130 03/10/22 13:42 93 18 225/150 99 03/10/22 13:11 97.6 F 82 18 244/146 100 Intake and Output 03/10/22 03/10/22 03/10/22 06:59 14:59 22:59 Intake Total 0.6 Balance 0.6 Intake: Intake, IV Titration 0.6 Amount Nitroglycerin-D5w Pmx 50 0.6 mg In Dextrose/Water 1 250ml.bag @ 5 MCG/MIN 1.5 mls/hr IV .Q24H ONE Rx#: [id number] Other: Weight 111.13 kg Results CBC & Chem 7: 03/10/22 13:28 03/10/22 13:28 Labs: Abnormal Lab Results - Last 24 Hours (Table) 03/10/22 03/10/22 Range/Units 13:28 13:28 Chloride 112 H (98-107) mmol/L Carbon Dioxide 21 L (22-30) mmol/L Glucose 113 H (74-99) mg/dL Troponin I 0.109 H* (0.000-0.034) ng/mL
--- NOTE | 2022-03-10 16:06 | P.CRDCN ---
History of Present Illness History of present illness: HISTORY OF PRESENTING ILLNESS Patient is a pleasant 46-year-old male with history of tobacco abuse, hypertension not on any antihypertensive medications secondary to previously not having insurance. Patient presents secondary to chest pain which started yesterday however then resolves however reoccurred today with associated diaphoresis, shortness breath and therefore presented to emergency department. Patient's blood pressure extremely elevated 244/146 and given some nitroglycerin as well as labetalol with some improvement in the pressure. He states his blood pressure has been elevated however has not had insurance and therefore has not been taking medications. He is smoking however denies any alcohol or illicit drugs other than marijuana. Denies any family history of CAD. No prior episodes. He was placed on nitroglycerin drip however currently at 50 with continued 4-5 out of 10 chest pain. REVIEW OF SYSTEMS At the time of my exam: CONSTITUTIONAL: Denies fever or chills. CARDIOVASCULAR: +Chest pain, +shortness of breath, no orthopnea, PND or palpitations. RESPIRATORY: Denies cough. GASTROINTESTINAL: Denies abdominal pain, diarrhea, constipation, nausea or vomiting. MUSCULOSKELETAL: Denies myalgias. NEUROLOGIC: Denies numbness, tingling or weakness. ENDOCRINE: Denies fatigue, weight change, polydipsia or polyurina. GENITOURINARY: Denies burning, hematuria or urgency with micturation. HEMATOLOGIC: Denies history of anemia or bleeding. PHYSICAL EXAMINATION Vital signs reviewed. CONSTITUTIONAL: +mild distress. HEENT: Head is normocephalic. Pupils are equal, round. Sclerae anicteric. Mucous membranes of the mouth are moist. No JVD. No carotid bruit. CHEST EXAMINATION: Lungs are clear to auscultation. No chest wall tenderness is noted on palpation or with deep breathing. HEART EXAMINATION: Regular rate and rhythm. S1, S2 heard. No murmurs, gallops or rub. ABDOMEN: Soft, nontender. Positive bowel sounds. EXTREMITIES: 2+ peripheral pulses, no lower extremity edema and no calf tenderness. NEUROLOGIC EXAMINATION: Patient is awake, alert and oriented x3. ASSESSMENT 1. Non-STEMI likely type I mechanism with typical features and ischemic appearing EKG 2. Hypertension, extremely elevated on presentation, not taking any medications outpatient 3. Tobacco abuse PLAN Patient having ongoing chest pain and presentation consistent with acute coron sahara syndrome. Discussed recommendations for urgent heart catheterization and patient is agreeable. Continue with aspirin, heparin drip, atorvastatin. Check 2-D echo. Tobacco cessation. Further recommendations to follow. Past Medical History Past Medical History: GERD/Reflux, Hypertension Additional Past Medical History / Comment(s): mono History of Any Multi-Drug Resistant Organisms: None Reported Past Surgical History: No Surgical Hx Reported Past Anesthesia/Blood Transfusion Reactions: Family Hisory of Malignant Hyperthermia Past Psychological History: Anxiety, Depression Smoking Status: Current some day smoker Past Alcohol Use History: None Reported Past Drug Use History: Marijuana, Methamphetamine - Past Family History family Family Medical History: Liver Disease Medications and Allergies Home Medications Medication Instructions Recorded Confirmed Type No Known Home Medications 03/10/22 03/10/22 History Allergies Allergy/AdvReac Type Severity Reaction Status Date / Time Penicillins Allergy Anaphylaxis Verified 03/10/22 14:58 Physical Exam Vitals: Vital Signs Temp Pulse Resp BP Pulse Ox 03/10/22 15:10 68 24 229/147 98 03/10/22 14:01 76 18 207/130 03/10/22 13:42 93 18 225/150 99 03/10/22 13:11 97.6 F 82 18 244/146 100 Intake and Output 03/10/22 03/10/22 03/10/22 06:59 14:59 22:59 Intake Total 4.35 Balance 4.35 Intake: Intake, IV Titration 4.35 Amount Nitroglycerin-D5w Pmx 50 4.35 mg In Dextrose/Water 1 250ml.bag @ 5 MCG/MIN 1.5 mls/hr IV .Q24H ONE Rx#: [id number] Other: Weight 111.13 kg Results 03/10/22 13:28 03/10/22 13:28 Cardiac Enzymes 03/10/22 03/10/22 Range/Units 13:28 13:28 AST 31 (17-59) U/L Troponin I 0.109 H* (0.000-0.034) ng/mL Coagulation 03/10/22 Range/Units 13:28 PT 10.8 (9.0-12.0) sec APTT 27.2 (22.0-30.0) sec CBC 03/10/22 Range/Units 13:28 WBC 10.1 (3.8-10.6) k/uL RBC 5.06 (4.30-5.90) m/uL Hgb 14.6 (13.0-17.5) gm/dL Hct 44.5 (39.0-53.0) % Plt Count 374 (150-450) k/uL Comprehensive Metabolic Panel 03/10/22 Range/Units 13:28 Sodium 140 (137-145) mmol/L Potassium 4.7 (3.5-5.1) mmol/L Chloride 112 H (98-107) mmol/L Carbon Dioxide 21 L (22-30) mmol/L BUN 17 (9-20) mg/dL Creatinine 1.02 (0.66-1.25) mg/dL Glucose 113 H (74-99) mg/dL Calcium 9.3 (8.4-10.2) mg/dL AST 31 (17-59) U/L ALT 31 (4-49) U/L Alkaline Phosphatase 103 (38-126) U/L Total Protein 7.3 (6.3-8.2) g/dL Albumin 4.1 (3.5-5.0) g/dL Current Medications Generic Name Dose Route Start Last Admin Trade Name Freq PRN Reason Stop Dose Admin Aspirin 81 mg 03/11/22 09:00 Aspirin 81 Mg PO DAILY [facility] Atorvastatin Calcium 80 mg 03/10/22 15:00 03/10/22 15:23 Atorvastatin 80 Mg Tab PO 80 mg DAILY [facility] Administration Heparin Sodium (Porcine) 0 unit 03/10/22 14:50 Heparin Sodium 1,000 Un/Ml (10ml Vl) IV PER PROTOCOL PRN Low PTT Protocol Heparin Sodium/Sodium Chloride 250 mls @ 10.002 mls/hr 03/10/22 15:00 03/10/22 15:04 25,000 unit/ Sodium Chloride IV 9 units/kg/hr .Q24H KATHLEEN 10.002 mls/hr Administration Protocol 9 UNITS/KG/HR Nitroglycerin/Dextrose 50 mg/ 250 mls @ 1.5 mls/hr 03/10/22 15:02 03/10/22 15:53 IV Solution IV 03/11/22 15:01 50 mcg/min .Q24H ONE 15 mls/hr Titration Protocol 5 MCG/MIN Metoprolol Tartrate 25 mg 03/10/22 21:00 Metoprolol Tartrate 25 Mg Tab PO BID [facility] Morphine Sulfate 2 mg 03/10/22 14:54 Morphine Sulfate 2 Mg/Ml Syringe IVP Q5M PRN Chest Pain Intake and Output 03/10/22 03/10/22 03/10/22 06:59 14:59 22:59 Intake Total 4.35 Balance 4.35 Intake: Intake, IV Titration 4.35 Amount Nitroglycerin-D5w Pmx 50 4.35 mg In Dextrose/Water 1 250ml.bag @ 5 MCG/MIN 1.5 mls/hr IV .Q24H ONE Rx#: [id number] Other: Weight 111.13 kg Patient Weight 03/11/22 06:59 Weight 111.13 kg 03/10/22 13:28 03/10/22 13:28
[2022-03-10] MEDS ORDERED: ALPRAZolam 0.25 MG TAB PO PRN (16:11)
[2022-03-10] MEDS ORDERED: ATORVASTATIN 80 MG TAB PO STA (16:11)
[2022-03-10] MEDS ORDERED: NITROGLYCERIN SL TABS 0.4 MG TAB SUBLINGUAL PRN ×2 (16:11→18:05)
[2022-03-10] MEDS ORDERED: VERAPAMIL 2.5 MG/ML 2 ML AMP ONE (16:25)
[2022-03-10] MEDS ORDERED: SODIUM CHLORIDE 0.9% 1,000 ML IV ONE (16:33)
[2022-03-10] MEDS: fentaNYL (PF) 50 MCG/ML 2 ML AMP IV ONE ×2 (16:43→17:01)
[2022-03-10] MEDS ORDERED: MIDAZOLAM 2 MG/2 ML VIAL IV ONE ×2 (16:43→17:01)
[2022-03-10] MEDS ORDERED: LIDOCAINE 1% INJ 10MG/ML (5 ML VIAL-PF) SQ ONE (16:44)
[2022-03-10] MEDS ORDERED: fentaNYL (PF) 50 MCG/ML 2 ML AMP ONE (16:44)
[2022-03-10] MEDS ORDERED: VERAPAMIL SYRINGE (5 MG/10 ML) INTRAARTER ONE (16:46)
[2022-03-10] MEDS: HEPARIN SODIUM 1,000 UN/ML (10ML VL) IV ONE ×3 (16:51→17:30)
[2022-03-10] MEDS ORDERED: HEPARIN SODIUM 1,000 UN/ML (10ML VL) ONE (16:51)
[2022-03-10] MEDS ORDERED: PRASUGREL 10 MG TAB PO ONE (16:56)
[2022-03-10] MEDS ORDERED: PRASUGREL 10 MG TAB ONE ×2 (16:58)
[2022-03-10] MEDS: NITROGLYCERIN 1000MCG/10ML SYRINGE INTRACORON ONE ×2 (17:05→17:12)
[2022-03-10] MEDS ORDERED: IOPAMIDOL-370 125ML BTL INJ ONE (17:18)
[2022-03-10] MEDS ORDERED: hydrALAZINE HCL 20 MG/ML 1 ML VIAL ONE (17:27)
[2022-03-10] MEDS: hydrALAZINE HCL 20 MG/ML 1 ML VIAL IV ONE ×2 (17:27→17:35)
[2022-03-10] MEDS ORDERED: IOPAMIDOL-370 100ML BTL INJ ONE ×2 (17:42)
[2022-03-10] MEDS ORDERED: METOPROLOL TARTRATE 5 MG/5 ML VIAL IVP ONE ×2 (17:45)
[2022-03-10] MEDS ORDERED: NITROGLYCERIN OINT 1 INCH/GM PACKET TOPICAL SCH (18:00)
[2022-03-10] MEDS ORDERED: MAG HYDROX/AL HYDROX/SIMETH 30 ML CUP PO PRN (18:05)
[2022-03-10] MEDS ORDERED: ATROPINE SULFATE 0.1 MG/ML 10ML SYRINGE IV PRN (18:05)
[2022-03-10] MEDS ORDERED: ZOLPIDEM 5 MG TAB PO PRN (18:05)
[2022-03-10] MEDS ORDERED: RX INFO: IV CONTRAST WAS GIVEN 1 EACH MISC MISCELLANE PRN (18:05)
--- NOTE | 2022-03-10 18:05 | P.PRCINT ---
Percutaneous Coronary Int. - Percutaneous Coronary Intervention Percutaneous Coronary Intervention: PROCEDURES PERFORMED: Left heart catheterization, bilateral coronary angiography, PCI ramus with 4.0 x 12mm Xience ELEN, PCI circumflex into OM2 with 3.0 x 12mm Xience ELEN INDICATION: non-STEMI with ongoing chest pain HISTORY: patient is a pleasant 46-year-old male with history of tobacco abuse and untreated hypertension who presented with worsening chest pain over the last 2 days with ongoing chest pain despite nitroglycerin. Blood pressure is extremely elevated on presentation in the 240s over 120s. Therefore heart catheterization was recommended. CONSENT:I have discussed the risks, benefits and alternative therapies for the above-mentioned procedure and for both sedation/analgesia as well as necessary blood product administration, if indicated, as they pertain to this patient. The patient has indicated understanding and acceptance of the risks and procedures discussed. PROCEDURE: After the risks, benefits and alternatives of the above mentioned procedure explained in detail with the patient, informed consent was obtained. Patient was taken to the catheterization lab and prepped and draped in usual fashion. 1% lidocaine was used to anesthetize the right radial artery. A 6- [place] sheath was placed in the right radial artery using modified Seldinger technique. Left coronary angiography was performed with a 5-[place] JL 3.5 catheter and right coronary angiography was performed with a 5-[place] JR5 catheter in various views. A 5-[place] FR5 catheter was inserted into the left ventricle and pressure measurements were obtained. The LAD appeared chronic with collaterals from the RCA as well as from the diagonal branch. First intervention was recommended upon the ramus. Heparin was given for ACT over 250. ACLS 3.5, 6-[place] catheter was used to engage the left main. A 0.014 BMW wire was advanced into the distal ramus. Predilation was performed with a 3.0 x 8 mm balloon. Next a 4.0 x 12 mm Xience ELEN was placed in the mid ramus. Preintervention there was 99% stenosis and NICOLLE 2 flow and postintervention there was 0% stenosis and NICOLLE-3 flow. Patient's pain overall improved however he was still having ongoing intermittent chest pain and therefore consideration of a more subacute LAD was considered. Therefore using a 0.014 was for wire the whisper wire was attempted to be advanced into the LAD. This was unsuccessful and appeared to be behaving more like a [employer]ICE and therefore further intervention of LAD was deferred. There was still a circumflex stenosis with patient being hypertensiveand given ongoing pain decision was made to perform PCI of the circumflex. A 0.014 whisper wire was advanced into the distal OM 2 branch. Next predilation was performed with a 3.0 x 12 mm balloon. Next a 3.0 x 12mm Xience ELEN was deployed into the distal circumflex into OM 2. Preintervention there was 95% stenosis and NICOLLE-3 flow and postintervention there was 0% stenosis and NICOLLE 3 flow. The wire was removed and final angiograms were performed. He was chest pain free. The right radial sheath was removed and a TR band was placed with hemostasis achieved. The patient tolerated the procedure well. Patient was transported back to the post catheterization holding area in stable condition. Conscious Sedation: Patient was monitored under the direct supervision of vision of myself for conscious sedation using Versed and fentanyl for a total duration of 60 minutes HEMODYNAMICS: Ao: 178/105 LV: 174/12, LVEDP 25mmHg SELECTIVE CORONARY ARTERIOGRAPHY: LEFT MAIN: The left main is a large caliber vessel which trifurcates into the LAD, ramus and circumflex. There is no significant stenosis. LEFT ANTERIOR DESCENDING CORONARY ARTERY: LAD is a large caliber vessel which wraps around to the apex. There are mild luminal irregularities of the proximal LAD and the mid LAD has a 40% eccentric stenosis at the level of the 1st large septal. There is then a 100% mid LAD stenosis just after a large caliber diagonal branch with only a minimal septal seen and then has 100% stenosis. There are late left to left collaterals to the apical LAD. RAMUS INTERMEDIUS: The ramus is a large caliber vessel with 99% mid ramus stenosis and otherwise mild 10-20% stenosis. LEFT CIRCUMFLEX CORONARY ARTERY: Left circumflex is a moderate caliber vessel which gives off 2 small to moderate caliber OM branches. There is a 95% stenosis at the takeoff of the OM2 and then the circumflex becomes a small vessel. RIGHT CORONARY ARTERY: The right coronary artery is a large caliber vessel which gives off a PDA and PLV branch and is the dominant vessel. There are mild 10- 20% proximal and mid RCA stenosis. There are right to left collaterals to the LAD. FINAL IMPRESSION: 1. CAD as described above with 99% ramus, 95% distal circumflex into OM2, 40% eccentric mid LAD, 100% [employer] mid LAD with left to left and right to left collaterals. 2. S/p PCI ramus with 4.0 x 12mm Xience ELEN, PCI circumflex into OM2 with 3.0 x 12mm Xience ELEN 3. Elevated left sided filling pressures PLAN: 1. Aggressive risk factor modification per most recent ACC/AHA guidelines. 2. Continue dual antiplatelets with aspirin and Effient for 12 months. 3. Tobacco cessation. 4. Aggressive blood pressure control. If patient continues to have angina may consider attempt [employer]ICE PCI LAD.
[2022-03-10] MEDS: ALPRAZolam 0.5 MG TAB PO PRN (18:19)
[2022-03-10] MEDS: LOSARTAN 50 MG TAB PO SCH (18:20)
[2022-03-10] MEDS: METOPROLOL TARTRATE 50 MG TAB PO SCH (18:20)
[2022-03-10] MEDS ORDERED: SODIUM CHLORIDE 0.9% 1,000 ML IV SCH (21:00)
[2022-03-10] MEDS ORDERED: METOPROLOL TARTRATE 25 MG TAB PO SCH (21:00)
[2022-03-10] MEDS: ACETAMINOPHEN TAB 325 MG TAB PO PRN (21:07)
[2022-03-11] MEDS: ALPRAZolam 0.5 MG TAB PO PRN ×2 (00:15→06:09)
[2022-03-11 06:06] LABS: African American GFR (CKD) >90 (>60 ml/min/1.73 sqM); Anion Gap 4 mmol/L; Blood Urea Nitrogen 18 mg/dL (9-20); Calcium 8.3 mg/dL (8.4-10.2); Carbon Dioxide 25 mmol/L (22-30); Chloride 112 mmol/L (98-107); Glucose 104 mg/dL (74-99); Magnesium 1.8 mg/dL (1.6-2.3); Non-African American GFR(CKD) 89 (>60 ml/min/1.73 sqM); Potassium 4.1 mmol/L (3.5-5.1); Sodium 141 mmol/L (137-145)
[2022-03-11 06:07] LABS: INR 0.9 (<1.2); Prothrombin Time 10.4 sec (9.0-12.0)
[2022-03-11] MEDS: ACETAMINOPHEN TAB 325 MG TAB PO PRN (06:09)
[2022-03-11 06:10] LABS: Basophils # (A) 0.1 k/uL (0-0.2); Basophils % (A) 1 %; Eosinophils # (A) 0.3 k/uL (0-0.7); Eosinophils % (A) 3 %; HGB 11.8 gm/dL (13.0-17.5); Lymphocytes % (A) 19 %; MCHC 32.7 g/dL (31.0-37.0); MCV 88.5 fL (80.0-100.0); Mean Platelet Volume 8.3; Monocytes # (A) 0.5 k/uL (0-1.0); Monocytes % (A) 5 %; Neutrophils # (A) 7.3 k/uL (1.3-7.7); Neutrophils % (A) 71 %; Platelet Count 260 k/uL (150-450); RBC 4.07 m/uL (4.30-5.90); RDW 15.4 % (11.5-15.5); WBC 10.2 k/uL (3.8-10.6)
[2022-03-11] MEDS ORDERED: HEPARIN SODIUM,PORCINE 2,500 UNIT in SODIUM CHLORIDE 0.9% 250 ML IRRIGATION PRN (07:00)
[2022-03-11] MEDS ORDERED: HEPARIN SODIUM,PORCINE 10,000 UNIT in SODIUM CHLORIDE 0.9% 1,000 ML IRRIGATION PRN (07:00)
--- NOTE | 2022-03-11 07:26 | P.PN ---
Subjective Progress Note Date: 03/11/22 Principal diagnosis: Acute coronary syndrome The patient is a 46-year-old gentleman with history of smoking who was admitted to the hospital with a chest discomfort and elevated blood pressure and he was ruled in for acute coronary event. He underwent heart catheterization which revealed severe 2 vessel CAD involving the ramus intermedius and LCx. He underwent PCI of both. The patient was seen this morning. He is asymptomatic in terms of chest pain or chest discomfort. He is hypertensive in spite of being on beta kemi as well as ARB. I'm going to add Aldactone to the current medical regimen. He is currently on dual antiplatelet therapy along with high intensity statin. An echo is in process to be done. We'll follow-up on the echocardiogram and adjust the blood pressure medication to get the pressure under control. Objective - Vital Signs Vital signs: Vital Signs Temp 98.3 F 03/11/22 04:00 Pulse 71 03/11/22 07:00 Resp 17 03/11/22 07:00 BP 154/104 03/11/22 07:00 Pulse Ox 96 03/11/22 07:00 FiO2 Intake & Output 03/10/22 03/11/22 03/11/22 18:59 06:59 18:59 Intake Total 391.348 858.85 Output Total 1100 0 Balance 391.348 -241.15 0 Weight 111.13 kg 112.8 kg Intake: IV 350 280 Sodium Chloride 0.9% 1, 280 000 ml @ 40 mls/hr IV . Q24H KATHLEEN Rx#:[id number] Intake, IV Titration 41.348 98.85 Amount Heparin Sod,Pork in 0.45% 31.173 NaCl 25,000 unit In 0.45 % NaCl 1 250ml.bag @ 9 UNITS/KG/HR 10.002 mls/hr IV .Q24H KATHLEEN Rx#: [id number] Nitroglycerin-D5w Pmx 50 10.175 98.85 mg In Dextrose/Water 1 250ml.bag @ 5 MCG/MIN 1.5 mls/hr IV .Q24H ONE Rx#: [id number] Tube Feeding 480 Output: Urine 1100 0 Other: Voiding Method Urinal - Constitutional General appearance: Present: no acute distress - Respiratory Respiratory: bilateral: CTA - Cardiovascular Rhythm: regular Heart sounds: normal: S1, S2 - Labs CBC & Chem 7: 03/11/22 05:24 03/11/22 05:24 Labs: Abnormal Lab Results - Last 24 Hours (Table) 03/10/22 03/10/22 03/10/22 Range/Units 13:28 13:28 16:18 RBC (4.30-5.90) m/uL Hgb (13.0-17.5) gm/dL Hct (39.0-53.0) % Chloride 112 H (98-107) mmol/L Carbon Dioxide 21 L (22-30) mmol/L Glucose 113 H (74-99) mg/dL Calcium (8.4-10.2) mg/dL Troponin I 0.109 H* 1.420 H* (0.000-0.034) ng/mL 03/10/22 03/11/22 03/11/22 Range/Units 20:49 05:24 05:24 RBC 4.07 L (4.30-5.90) m/uL Hgb 11.8 L (13.0-17.5) gm/dL Hct 36.0 L (39.0-53.0) % Chloride 112 H (98-107) mmol/L Carbon Dioxide (22-30) mmol/L Glucose 104 H (74-99) mg/dL Calcium 8.3 L (8.4-10.2) mg/dL Troponin I 76.100 H* (0.000-0.034) ng/mL Assessment and Plan Assessment: Assessment #1 acute coronary syndrome #2 history of smoking #3 hypertension emergency Plan #1 continue the current medical regimen #2 follow-up on the echocardiogram #3 add Aldactone to the current medical regimen #4 monitor the kidney function and electrolytes #5 follow-up with the patient
[2022-03-11] MEDS: LOSARTAN 50 MG TAB PO SCH (08:58)
[2022-03-11] MEDS: ATORVASTATIN 80 MG TAB PO SCH (08:58)
[2022-03-11] MEDS: METOPROLOL TARTRATE 50 MG TAB PO SCH (08:58)
[2022-03-11] MEDS ORDERED: ASPIRIN 81 MG PO SCH (09:00)
[2022-03-11] MEDS ORDERED: SPIRONOLACTONE 25 MG TAB PO SCH (09:00)
[2022-03-11] MEDS ORDERED: ASPIRIN 325 MG TAB PO SCH (09:00)
[2022-03-11] MEDS ORDERED: HYDROcodone/APAP 5-325MG 1 EACH TAB PO PRN (09:00)
[2022-03-11] MEDS ORDERED: PRASUGREL 10 MG TAB PO SCH (09:00)
[2022-03-11] MEDS ORDERED: NICOTINE 21MG/24HR PATCH TRANSDERM SCH (09:30)
--- NOTE | 2022-03-11 10:06 | CA ---
Transthoracic Echo Report Name: Guilherme Mcqueen Age: 46 Gender: M : 1975 Exam Date: 03/11/2022 08:08 Exam Location: [facility] Ht (in): 72 Wt (lb): 248 Ordering Physician: Troy Nash MD Attending/Referring Phys: [id number], [employer] Specialist Daisha Cisneros RDCS Procedure CPT: Indications: ACS Cardiac Hx: Technical Quality: Good Contrast 1: Total Dose (mL): Contrast 2: Total Dose (mL): MEASUREMENTS (Male / Female) Normal Values 2D ECHO LV Diastolic Diameter PLAX 5.5 cm 4.2 - 5.9 / 3.9 - 5.3 cm LV Systolic Diameter PLAX 4.0 cm IVS Diastolic Thickness 1.4 cm 0.6 - 1.0 / 0.6 - 0.9 cm LVPW Diastolic Thickness 1.6 cm 0.6 - 1.0 / 0.6 - 0.9 cm LV Relative Wall Thickness 0.5 RV Internal Dim ED PLAX 3.4 cm LA Systolic Diameter LX 3.7 cm 3.0 - 4.0 / 2.7 - 3.8 cm LA Volume 89.7 cm??? 18 - 58 / 22 - 52 cm??? M-MODE Aortic Root Diameter MM 3.1 cm MV E Point Septal Separation 1.0 cm AV Cusp Separation MM 2.2 cm DOPPLER AV Peak Velocity 157.5 cm/s AV Peak Gradient 9.9 mmHg MV Area PHT 5.1 cm??? Mitral E Point Velocity 91.6 cm/s Mitral A Point Velocity 120.5 cm/s Mitral E to A Ratio 0.8 MV Deceleration Time 148.6 ms MV E' Velocity 5.4 cm/s Mitral E to MV E' Ratio 17.0 TR Peak Velocity 252.2 cm/s TR Peak Gradient 25.4 mmHg Right Ventricular Systolic Press 30.4 mmHg FINDINGS Left Ventricle Left ventricular ejection fraction is estimated at 35%. Left ventricular cavity size normal. Moderate concentric left ventricular hypertrophy. Right Ventricle Mild right ventricular dilatation. Right ventricular systolic pressure within normal limits. Right Atrium Normal right atrial size. Left Atrium Severely increased left atrial volume. Mildly increased left atrial area. No evidence for an atrial septal defect. Mitral Valve Structurally normal mitral valve. Trace mitral regurgitation. Aortic Valve Trileaflet aortic valve. No aortic valve stenosis or regurgitation. Tricuspid Valve Mild tricuspid regurgitation. Pulmonic Valve Structurally normal pulmonic valve. Pericardium Normal pericardium. No pericardial effusion. Aorta Normal size aortic root and proximal ascending aorta. CONCLUSIONS Reduced LV systolic function with anterior, apical and lateral wall hypokinesis Large apical hypokinesis that extends into the anterior wall, lateral wall and inferior lópez The mid and basal septum are elisha Left ventricle ejection fraction is 35% Previewed by: Dr. Victor Hugo Appiah MD (Electronically Signed) Final Date: 11 March 2022 10:05
[2022-03-11 10:11] VITALS: PULSE 73
[2022-03-11 10:52] VITALS: BMI 33.7
[2022-03-11 11:05] LABS: Chol/HDL Ratio 4.61 Ratio; LDL Cholesterol,Calculated 86.3 mg/dL (0.0-131.0)
[2022-03-11 12:13] VITALS: BP 147/104; RESP 19; TEMP 98.3
--- NOTE | 2022-03-11 12:31 | P.DS ---
Providers Date of admission: 03/10/22 14:56 Expected date of discharge: 03/11/22 Attending physician: Marlene Castillo, DO Consults: 03/10/22 14:54 Consult Physician Urgent Consulting Provider: Nestor Keenan Consult Reason/Comments: NSTEMI Do you want consulting provider notified?: Already Contacted 03/10/22 18:05 Consult Physician Routine Consulting Provider: [facility] Consult Reason/Comments: Post Interventional Patient Do you want consulting provider notified?: Already Contacted Primary care physician: Stated None Hospital Course: Discharge Diagnosis: NSTEMI Ischemic cardiomyopathy EF 35% Hypertensive emergency Tobacco abuse GERD Obesity with BMI 33.7 Hospital Course: Patient is a 46-year-old male for history of hypertension, tobacco dependency, and obesity who presented with chest pain. In the ER he underwent an extensive evaluation. He was found be hypertensive with a blood pressure of 244/146, bicarbonate 21, BNP 806, troponin mildly elevated at 0.109. Chest x-ray showed no acute process. EKG demonstrated normal sinus rhythm with ST depression. He was started on a nitro drip, heparin drip, aspirin, statin, and beta kemi. Cardiology was consulted. He underwent cardiac cath same day as admission with PCI to the ramus and circumflex. Echo with EF 35%. On 03/11/22 patient was asking to be discharged. We had a long discussion about recommendations for him to stay one more day given the fact that his EF is 35%. He feels as though he is good enough to go home today and wishes to be discharged. Case was discussed with cardiology and Dr. Foster was amenable to discharging patient home. He of the risks of leaving early today including uncontrolled blood pressure and possible development of cardiac arrhythmias. He is aware of the risks of possible he still would like to leave. We did discuss the importance of taking all medications as prescribed. We discussed the importance of each medication including the ones that are for high blood pressure and to help with cardiac remodeling. He agrees to follow up with cardiology, stay off of work for one week, and take medications as prescribed. Patient seen and examined at bedside. No chest pain at this time, having aching all over all. No shortness of breath Vital signs reviewed and stable. General: nontoxic, no distress, appears at stated age Derm: warm, dry Head: atraumatic, normocephalic, symmetric Eyes: EOMI, no lid lag, anicteric sclera Mouth: no lip lesion, mucus membranes moist Cardiovascular: S1S2 reg, no murmur, positive posterior tibial pulse bilateral, Lungs: CTA bilateral, no rhonchi, no rales , no accessory muscle use Abdominal: soft, nontender to palpation, no guarding, no appreciable organomegaly Ext: no gross muscle atrophy, no edema, no contractures Neuro: CN II-XI grossly intact, no focal neuro deficits Psych: Alert, oriented, appropriate affect A total of 42 minutes of time were spent preparing this complex discharge summary. Patient was discharged on 03/11/22. Patient Condition at Discharge: Stable Plan - Discharge Summary Discharge Rx Participant: No New Discharge Prescriptions: New Aspirin 81 mg PO DAILY #30 tab Losartan [Cozaar] 50 mg PO DAILY #30 tab Prasugrel [Effient] 10 mg PO DAILY #30 tab Atorvastatin [Lipitor] 80 mg PO DAILY #30 tab Metoprolol Tartrate [Lopressor] 50 mg PO BID #60 tab Spironolactone [Aldactone] 25 mg PO DAILY #30 tab Discharge Medication List Aspirin 81 mg PO DAILY #30 tab 03/11/22 [Rx] Atorvastatin [Lipitor] 80 mg PO DAILY #30 tab 03/11/22 [Rx] Losartan [Cozaar] 50 mg PO DAILY #30 tab 03/11/22 [Rx] Metoprolol Tartrate [Lopressor] 50 mg PO BID #60 tab 03/11/22 [Rx] Prasugrel [Effient] 10 mg PO DAILY #30 tab 03/11/22 [Rx] Spironolactone [Aldactone] 25 mg PO DAILY #30 tab 03/11/22 [Rx] Follow up Appointment(s)/Referral(s): Nestor Keenan DO [STAFF PHYSICIAN] - 1 Week None,Stated [Primary Care Provider] - 1-2 days Shaan Mcginnis [STAFF PHYSICIAN] - 1 Week Patient Instructions/Handouts: Heart Attack (DC), Heart Catheterization (DC) Activity/Diet/Wound Care/Special Instructions: Activity: As tolerated Diet: heart health Special Instructions: Stop smoking Off work for 1 work Discharge/Stand Alone Forms: Work/School Release / Restrict Discharge Disposition: HOME SELF-CARE
== END 2022-03-11 14:34 | disposition home or self-care (01) | DRG 247 ==
LOC: EC 13:10 → 3SCARD 14:56 → 2SICU 17:49
PROVIDERS: ADMIT Internal Medicine; ATTEND Internal Medicine
PROC: B2111ZZ Fluoroscopy of Multiple Coronary Arteries using Low Osmolar Contrast (ICD-10-PCS; principal; 2022-03-10 16:30)
PROC: 027135Z Dilation of Coronary Artery, Two Arteries with Two Drug-eluting Intraluminal Devices, Percutaneous Approach (ICD-10-PCS; principal; 2022-03-10 16:30)
PROC: 4A023N7 Measurement of Cardiac Sampling and Pressure, Left Heart, Percutaneous Approach (ICD-10-PCS; principal; 2022-03-10 16:30)
DX: I21.4 Non-ST elevation (NSTEMI) myocardial infarction (principal); I16.1 Hypertensive emergency; E66.9 Obesity, unspecified; Z28.310 Unvaccinated for COVID-19; I25.5 Ischemic cardiomyopathy; I25.10 Atherosclerotic heart disease of native coronary artery without angina pectoris; I10 Essential (primary) hypertension; K21.9 Gastro-esophageal reflux disease without esophagitis; Z68.33 Body mass index [BMI] 33.0-33.9, adult; F17.210 Nicotine dependence, cigarettes, uncomplicated; Z71.6 Tobacco abuse counseling; Z86.59 Personal history of other mental and behavioral disorders; Z88.0 Allergy status to penicillin; Z84.89 Family history of other specified conditions; Z83.79 Family history of other diseases of the digestive system
CPT/HCPCS: 36415; 71046; 80048; 80053; 80061; 83036; 83735; 83880; 84443; 84484; 85025; 85379; 85610; 85730; 93005; 93306; 93458; 96365; 96368; 96375; 96376; 99291

== ENCOUNTER 2024-01-29 12:03 | Emergency (ER) | payer BC ==
--- NOTE | 2024-01-29 12:48 | ED ---
General Adult HPI - General Chief complaint: Syncope Stated complaint: poss broken R foot Time Seen by Provider: 01/29/24 12:26 Source: patient Mode of arrival: EMS Limitations: no limitations - History of Present Illness Initial comments: 48-year-old male presents emergency department reporting right foot pain. He states that yesterday he got home from work and was walking around his house. He felt lightheaded and ended up passing out. He woke up on the ground only after a few seconds. States that he fell on top of his right foot. He denies having chest pain or difficulty breathing. He did not hit his head. Patient thinks he was dehydrated from work and is not concerned about the passing out episode. He is concerned about the pain in his right foot. He has pain on the top of his foot. He has been unable to ambulate on it due to the pain. He denies any other injuries. No other alleviating, precipitating or modifying factors - Related Data Previous Rx's Medication Instructions Recorded Aspirin 81 mg PO DAILY #30 tab 03/11/22 Atorvastatin [Lipitor] 80 mg PO DAILY #30 tab 03/11/22 Losartan [Cozaar] 50 mg PO DAILY #30 tab 03/11/22 Metoprolol Tartrate [Lopressor] 50 mg PO BID #60 tab 03/11/22 Prasugrel [Effient] 10 mg PO DAILY #30 tab 03/11/22 Spironolactone [Aldactone] 25 mg PO DAILY #30 tab 03/11/22 HYDROcodone/APAP 7.5-325MG [Brusett 1 tab PO Q4HR PRN #18 tab 01/29/24 7.5-325] Allergies Allergy/AdvReac Type Severity Reaction Status Date / Time Penicillins Allergy Anaphylaxis Verified 01/29/24 12:11 Review of Systems ROS Statement: Those systems with pertinent positive or pertinent negative responses have been documented in the HPI. ROS Other: All systems not noted in ROS Statement are negative. Past Medical History Past Medical History: GERD/Reflux, Hypertension Additional Past Medical History / Comment(s): mono History of Any Multi-Drug Resistant Organisms: None Reported Past Surgical History: Heart Catheterization With Stent Additional Past Surgical History / Comment(s): 2 cardiac stents, Past Anesthesia/Blood Transfusion Reactions: Family Hisory of Malignant Hyperthermia Past Psychological History: Anxiety, Depression Smoking Status: Current every day smoker Past Alcohol Use History: None Reported Past Drug Use History: Marijuana, Methamphetamine - Past Family History family Family Medical History: Liver Disease General Exam Limitations: no limitations General appearance: alert, in no apparent distress Head exam: Present: atraumatic, normocephalic, normal inspection Eye exam: Present: normal appearance, PERRL, EOMI. Absent: scleral icterus, conjunctival injection, periorbital swelling ENT exam: Present: normal exam, mucous membranes moist Neck exam: Present: normal inspection. Absent: tenderness, meningismus, lymphadenopathy Respiratory exam: Present: normal lung sounds bilaterally. Absent: respiratory distress, wheezes, rales, rhonchi, stridor Cardiovascular Exam: Present: regular rate, normal rhythm, normal heart sounds. Absent: systolic murmur, diastolic murmur, rubs, gallop, clicks GI/Abdominal exam: Present: soft, normal bowel sounds. Absent: distended, tenderness, guarding, rebound, rigid Extremities exam: Present: full ROM, tenderness (to the midfoot of the right foot. there is swelling and ecchymosis. No plantar surface ecchymosis), normal capillary refill. Absent: pedal edema, joint swelling, calf tenderness Back exam: Present: normal inspection Neurological exam: Present: alert, oriented X3, CN II-XII intact Psychiatric exam: Present: normal affect, normal mood Skin exam: Present: warm, dry, intact, normal color. Absent: rash Course Vital Signs 01/29/24 01/29/24 12:06 17:27 Temperature 97.8 F 98.2 F Pulse Rate 83 64 Respiratory 18 17 Rate Blood Pressure 152/104 184/106 O2 Sat by Pulse 98 98 Oximetry Procedures - Orthopedic Splinting/Casting Injury #1 Side: right Lower Extremity Injury Location: short leg Lower Extremity Immobilizer: posterior splint, Shadi wrap, synthetic pre-padded splint Other Orthopedic Equipment: crutches Medical Decision Making - Medical Decision Making Was pt. sent in by a medical professional or institution (, PA, BATTERY STARTER, urgent care, hospital, or retirement...) When possible be specific @ -No Did you speak to anyone other than the patient for history (EMS, parent, family, police, friend...)? What history was obtained from this source @ -No Did you review nursing and triage notes (agree or disagree)? Why? @ -I reviewed and agree with nursing and triage notes Were old charts reviewed (outside hosp., previous admission, EMS record, old EKG, old radiological studies, urgent care reports/EKG's, retirement records)? Report findings @ -No old charts were reviewed Differential Diagnosis (chest pain, altered mental status, abdominal pain women, abdominal pain men, vaginal bleeding, weakness, fever, dyspnea, syncope, headache, dizziness, GI bleed, back pain, seizure, CVA, palpatations, mental health, musculoskeletal)? @ -Differential Syncope: Valvular disease, hypertrophic cardiomyopathy, pulmonary embolism, tamponade, tachycardia, bradycardia, RI, hypovolemia, hemorrhage, dissection, anemia, intracranial hemorrhage, seizure, hypoglycemia, carbon monoxide poisoning, this is not meant to be an all-inclusive list. EKG interpreted by me (3pts min.). @ -Yes and demonstrates sinus rhythm with rate of 72. PA interval 148. QRS 106. QTc of 396. No acute ST segment elevations or depressions X-rays interpreted by me (1pt min.). @ -Yes and demonstrates possible Lisfranc fracture CT interpreted by me (1pt min.). @ -None done U/S interpreted by me (1pt. min.). @ -None done What testing was considered but not performed or refused? (CT, X-rays, U/S, labs)? Why? @ -None What meds were considered but not given or refused? Why? @ -None Did you discuss the management of the patient with other professionals (professionals i.e. , PA, BATTERY STARTER, lab, RT, psych nurse, social worker delinquency prevention, wood mill supervisor, teacher, school resource officer, case fitter)? Give summary @ -I discussed the case with Dr. Law. He would like a CT of the extremity and the patient will follow-up in office. He does evaluate the patient in the ED Was smoking cessation discussed for >3mins.? @ -No Was critical care preformed (if so, how long)? @ -No Were there social determinants of health that impacted care today? How? (Homelessness, low income, unemployed, alcoholism, drug addiction, transportation, low edu. Level, literacy, decrease access to med. care, half-way, rehab)? @ -No Was there de-escalation of care discussed even if they declined (Discuss DNR or withdrawal of care, Hospice)? DNR status @ -No What co-morbidities impacted this encounter? (DM, HTN, Smoking, COPD, CAD, Cancer, CVA, ARF, Chemo, Hep., AIDS, mental health diagnosis, sleep apnea, morbid obesity)? @ -None Was patient admitted / discharged? Hospital course, mention meds given and route, prescriptions, significant lab abnormalities, going to OR and other pertinent info. @ -Upon arrival patient seen and evaluated in the hallway. Thorough history and physical exam was performed. Twelve-lead EKG is obtained. Laboratory alysha dies are conducted. Patient does go for chest and foot x-ray. Foot x-ray demonstrates possible Lisfranc fracture. I called and spoke with Dr. Law he would like a CT of the foot. He does come to the emergency department and evaluates the patient. Patient is placed in a short leg splint. He is instructed not to weight-bear. He will ambulate with crutches. He will rest, ice and elevate the extremity. I will provide him with pain medications. He is to follow-up in office with Dr. Law. I also recommended an echo because of the patient's syncope. Patient agreeable to this plan he was discharged in stable condition Undiagnosed new problem with uncertain prognosis? @ -No Drug Therapy requiring intensive monitoring for toxicity (Heparin, Nitro, Insulin, Cardizem)? @ -No Were any procedures done? @ -Splint placement right lower extremity Diagnosis/symptom? @ -Acute syncope, fall, right foot pain, Lisfranc fracture Acute, or Chronic, or Acute on Chronic? @ -Acute Uncomplicated (without systemic symptoms) or Complicated (systemic symptoms)? @ -Complicated Side effects of treatment? @ -No Exacerbation, Progression, or Severe Exacerbation? @ -No Poses a threat to life or bodily function? How? (Chest pain, USA, RI, pneumonia, PE, COPD, DKA, ARF, appy, cholecystitis, CVA, Diverticulitis, Homicidal, Suicidal, threat to staff... and all critical care pts) @ -No - Lab Data Result diagrams: 01/29/24 13:04 01/29/24 13:04 Lab Results 01/29/24 01/29/24 01/29/24 Range/Units 13:04 13:04 13:04 WBC 11.3 H (3.8-10.6) k/uL RBC 5.08 (4.30-5.90) m/uL Hgb 14.5 (13.0-17.5) gm/dL Hct 45.7 (39.0-53.0) % MCV 89.8 (80.0-100.0) fL MCH 28.5 (25.0-35.0) pg MCHC 31.7 (31.0-37.0) g/dL RDW 13.7 (11.5-15.5) % Plt Count 284 (150-450) k/uL MPV 8.6 Neutrophils % 75 % Lymphocytes % 16 % Monocytes % 5 % Eosinophils % 3 % Basophils % 1 % Neutrophils # 8.6 H (1.3-7.7) k/uL Lymphocytes # 1.8 (1.0-4.8) k/uL Monocytes # 0.5 (0-1.0) k/uL Eosinophils # 0.3 (0-0.7) k/uL Basophils # 0.1 (0-0.2) k/uL PT 10.8 (10.0-12.5) sec INR 1.0 (<1.2) APTT 27.7 (22.0-30.0) sec Sodium 138 (137-145) mmol/L Potassium 4.4 (3.5-5.1) mmol/L Chloride 110 H (98-107) mmol/L Carbon Dioxide 20 L (22-30) mmol/L Anion Gap 8 mmol/L BUN 25 H (9-20) mg/dL Creatinine 1.53 H (0.66-1.25) mg/dL Est GFR (CKD-EPI)AfAm 62 (>60 ml/min/1.73 sqM) Est GFR (CKD-EPI)NonAf 53 (>60 ml/min/1.73 sqM) Glucose 121 H (74-99) mg/dL Calcium 9.5 (8.4-10.2) mg/dL Total Bilirubin 0.5 (0.2-1.3) mg/dL AST 26 (17-59) U/L ALT 22 (4-49) U/L Alkaline Phosphatase 90 (38-126) U/L Troponin I (0.000-0.034) ng/mL Total Protein 7.0 (6.3-8.2) g/dL Albumin 4.2 (3.5-5.0) g/dL 01/29/24 Range/Units 13:04 WBC (3.8-10.6) k/uL RBC (4.30-5.90) m/uL Hgb (13.0-17.5) gm/dL Hct (39.0-53.0) % MCV (80.0-100.0) fL MCH (25.0-35.0) pg MCHC (31.0-37.0) g/dL RDW (11.5-15.5) % Plt Count (150-450) k/uL MPV Neutrophils % % Lymphocytes % % Monocytes % % Eosinophils % % Basophils % % Neutrophils # (1.3-7.7) k/uL Lymphocytes # (1.0-4.8) k/uL Monocytes # (0-1.0) k/uL Eosinophils # (0-0.7) k/uL Basophils # (0-0.2) k/uL PT (10.0-12.5) sec INR (<1.2) APTT (22.0-30.0) sec Sodium (137-145) mmol/L Potassium (3.5-5.1) mmol/L Chloride (98-107) mmol/L Carbon Dioxide (22-30) mmol/L Anion Gap mmol/L BUN (9-20) mg/dL Creatinine (0.66-1.25) mg/dL Est GFR (CKD-EPI)AfAm (>60 ml/min/1.73 sqM) Est GFR (CKD-EPI)NonAf (>60 ml/min/1.73 sqM) Glucose (74-99) mg/dL Calcium (8.4-10.2) mg/dL Total Bilirubin (0.2-1.3) mg/dL AST (17-59) U/L ALT (4-49) U/L Alkaline Phosphatase (38-126) U/L Troponin I <0.012 (0.000-0.034) ng/mL Total Protein (6.3-8.2) g/dL Albumin (3.5-5.0) g/dL Disposition Clinical Impression: Syncope, Lisfranc fracture, Foot fracture, right Disposition: HOME SELF-CARE Condition: Stable Instructions (If sedation given, give patient instructions): Foot Fracture in Adults (ED) Additional Instructions: Do not get the splint wet. Wear it at all times. Do not take it off. Ambulate with the crutches. Follow-up with Dr. Law in office for further management. Take the pain medications as needed. Return for any new or worsen ing symptoms Prescriptions: HYDROcodone/APAP 7.5-325MG [Br[place]ett 7.5-325] 1 tab PO Q4HR PRN #18 tab PRN Reason: Pain Is patient prescribed a controlled substance at d/c from ED?: Yes When asked, does pt state using other controlled substances?: No If prescribed controlled substance>3 days was MAPS reviewed?: Prescribed <3 Days If opioid is for acute pain is fill amount 7 days or less?: Yes Referrals: None,Stated [Primary Care Provider] - 1-2 days Steve Law DO [Doctor of Osteopathic Medicine] - 1-2 days Time of Disposition: 16:34
--- NOTE | 2024-01-29 13:06 | XR ---
EXAMINATION TYPE: XR chest 2V DATE OF EXAM: 01/29/2024 COMPARISON: 03/10/2022 HISTORY: Chest pain TECHNIQUE: Frontal and lateral views of the chest are obtained. FINDINGS: There is no focal air space opacity. No evidence for pneumothorax. No pleural effusion. The cardiac silhouette size is within normal limits. The osseous structures are grossly intact. IMPRESSION: 1. No acute cardiopulmonary process.
[2024-01-29 13:26] LABS: Basophils # (A) 0.1 k/uL (0-0.2); Basophils % (A) 1 %; Eosinophils # (A) 0.3 k/uL (0-0.7); Eosinophils % (A) 3 %; HCT 45.7 % (39.0-53.0); HGB 14.5 gm/dL (13.0-17.5); Lymphocytes # (A) 1.8 k/uL (1.0-4.8); Lymphocytes % (A) 16 %; MCH 28.5 pg (25.0-35.0); MCHC 31.7 g/dL (31.0-37.0); MCV 89.8 fL (80.0-100.0); Mean Platelet Volume 8.6; Monocytes # (A) 0.5 k/uL (0-1.0); Monocytes % (A) 5 %; Neutrophils # (A) 8.6 k/uL (1.3-7.7); Neutrophils % (A) 75 %; Platelet Count 284 k/uL (150-450); RBC 5.08 m/uL (4.30-5.90); RDW 13.7 % (11.5-15.5); WBC 11.3 k/uL (3.8-10.6)
[2024-01-29 13:39] LABS: Partial Thromboplastin Time 27.7 sec (22.0-30.0); Prothrombin Time 10.8 sec (10.0-12.5)
[2024-01-29 13:41] LABS: ALT 22 U/L (4-49); AST 26 U/L (17-59); African American GFR (CKD) 62 (>60 ml/min/1.73 sqM); Albumin 4.2 g/dL (3.5-5.0); Alkaline Phosphatase 90 U/L (38-126); Anion Gap 8 mmol/L; Blood Urea Nitrogen 25 mg/dL (9-20); Calcium 9.5 mg/dL (8.4-10.2); Carbon Dioxide 20 mmol/L (22-30); Chloride 110 mmol/L (98-107); Glucose 121 mg/dL (74-99); Non-African American GFR(CKD) 53 (>60 ml/min/1.73 sqM); Potassium 4.4 mmol/L (3.5-5.1); Sodium 138 mmol/L (137-145); Total Bilirubin 0.5 mg/dL (0.2-1.3)
--- NOTE | 2024-01-29 15:10 | XR ---
EXAMINATION TYPE: XR foot complete RT DATE OF EXAM: 01/29/2024 CLINICAL HISTORY: pain TECHNIQUE: Frontal, lateral and oblique images of the right foot are obtained. COMPARISON: None. FINDINGS: Fractures noted at the base of the second, third and fourth metatarsals. Mild widening at t he first interspace could reflect Lisfranc fracture dislocation. CT correlation recommended. Soft tis shahbaz swelling noted. IMPRESSION: As above
--- NOTE | 2024-01-29 16:57 | CT ---
EXAMINATION TYPE: CT foot RT wo con DATE OF EXAM: 01/29/2024 COMPARISON: None HISTORY: right foot pain CT DLP: 61.6 mGycm Automated exposure control for dose reduction was used. Contrast: Right foot x-ray same date Technique: Axial images 3 mm thick sections. Reconstructed images sagittal planes FINDINGS: Multiple nondisplaced fractures are present through the base of the second third and fourth metatarsa ls. These begin along the medial aspect of the base of the metatarsal and within the third and fourth metatarsals extends to the articular surface. Alignment appears preserved. Mild soft tissue swelling is present. IMPRESSION: 1. FINDINGS COMPATIBLE WITH NONDISPLACED LISFRANC FRACTURE AT THE BASE OF THE SECOND THIRD AND FOURTH METATARSALS.
--- NOTE | 2024-01-29 16:57 | P.CNOR ---
History of Present Illness - [facility] Consult date: 01/29/24 Consult reason: fracture History of present illness: 48 yo male presents after LOC and fall with right foot pain and swelling and severe pain with any weight bearing. He had XR and CT in ED showing MT fractures of 2-4 with minimal displacement but communication into the 1st T MT joint. He states no BHT with the fall but has right foot pain and some ankle pain. Denies any numbness/tingling. States no other areas of pain at this time. No knee pain. No hip pain. States no f/c/sob/cp at this time. Review of Systems 16 points review of systems completed and as stated in HPI, all other systems reviewed are negative. Past Medical History Past Medical History: GERD/Reflux, Hypertension Additional Past Medical History / Comment(s): mono History of Any Multi-Drug Resistant Organisms: None Reported Past Surgical History: Heart Catheterization With Stent Additional Past Surgical History / Comment(s): 2 cardiac stents, Past Anesthesia/Blood Transfusion Reactions: Family Hisory of Malignant Hyperthermia Past Psychological History: Anxiety, Depression Smoking Status: Current every day smoker Past Alcohol Use History: None Reported Past Drug Use History: Marijuana, Methamphetamine - Past Family History family Family Medical History: Liver Disease Medications and Allergies Home Medications Medication Instructions Recorded Confirmed Type Aspirin 81 mg PO DAILY #30 tab 03/11/22 Rx Atorvastatin [Lipitor] 80 mg PO DAILY #30 tab 03/11/22 Rx Losartan [Cozaar] 50 mg PO DAILY #30 tab 03/11/22 Rx Metoprolol Tartrate [Lopressor] 50 mg PO BID #60 tab 03/11/22 Rx Prasugrel [Effient] 10 mg PO DAILY #30 tab 03/11/22 Rx Spironolactone [Aldactone] 25 mg PO DAILY #30 tab 03/11/22 Rx HYDROcodone/APAP 7.5-325MG [[place] 1 tab PO Q4HR PRN #18 tab 01/29/24 Rx 7.5-325] Allergies Allergy/AdvReac Type Severity Reaction Status Date / Time Penicillins Allergy Anaphylaxis Verified 01/29/24 12:11 Physical Examination Osteopathic Statement: *. No significant issues noted on an osteopathic structural exam other than those noted in the History and Physical/Consult. Physical Exam: -Patient is alert and oriented 3 appears well-nourished well-hydrated is in no acute distress. They do not appear septic. -There is TTP Dorsal aspect of the right foot as well as right ankle and the lateral aspect and medial aspect. Tenderness to palpation of the first tarsome tatarsal joint as well as the first and second metatarsal joints. Swelling and ecchymosis noted tears well no plantar ecchymosis noted. -Upper extremities show [5] out of 5 strength in all major muscle groups. -Lower extremities with [5] out of 5 strength in all major muscle groups that her right lower extremity in EHL FHL secondary to pain and fracture he has good dorsi flexion plantarflexion without resistance secondary to fracture pain with no focal deficits -There is [FROM] that is [painless] of the b/l UE and LE in all major joints. and negative logroll negative straight leg raise bilaterally -They are intact to light touch sensation in C5 to T1 and L2 to S1 nerve distribution. -DTR [2]/4 all upper and lower extremities -Patient has palpable distal pulses all 4 ext -Compartments are soft and compressible. -Patient shows a negative Maurisio's [-Neg Hoffmans b/l] [-Neg Clonus b/l] [-Neg babinski b/l] Cranial nerves II through XII are grossly intact. Results x-rays of the right foot 3 views as well as computed tomography scan of her foot are reviewed and demonstrate metatarsal fractures at the base from 2 through 4 which are minimally displaced. This communication from the second metatarsal and the tarsometatarsal joint as well as the first and second metatarsal joints. There is no splaying of the first tarsometatarsal joint however or the first metatarsal second metatarsal joints. There is no deviation of any of the metatarsals. The remaining bones of the foot osseous abnormalities or some subtalar Bhavani 3 changes. Due to talar joint is congruent. No other fractures noted at this time. - Labs Labs: Abnormal Lab Results - Last 24 Hours (Table) 01/29/24 01/29/24 Range/Units 13:04 13:04 WBC 11.3 H (3.8-10.6) k/uL Neutrophils # 8.6 H (1.3-7.7) k/uL Chloride 110 H (98-107) mmol/L Carbon Dioxide 20 L (22-30) mmol/L BUN 25 H (9-20) mg/dL Creatinine 1.53 H (0.66-1.25) mg/dL Glucose 121 H (74-99) mg/dL H & H 01/29/24 Range/Units 13:04 Hgb 14.5 (13.0-17.5) gm/dL Hct 45.7 (39.0-53.0) % Coagulation 01/29/24 Range/Units 13:04 INR 1.0 (<1.2) Result Diagrams: 01/29/24 13:04 01/29/24 13:04 Assessment and Plan (1) Foot fracture, right Current Visit: Yes Status: Acute Code(s): S92.901A - UNSP FRACTURE OF RIGHT FOOT, INIT ENCNTR FOR CLOSED FRACTURE SNOMED Code(s): 49956535070099 (2) Lisfranc fracture Current Visit: Yes Status: Acute Code(s): TRA6593 - SNOMED Code(s): 49462389 Plan: -NWB RLE -Short leg splint RLE, do not get wet. -Ice, rest elevation for pain and swelling control -Take meds as needed for pain -Use crutches for ambulation -Follow up in office for reevaluation
[2024-01-29 17:30] VITALS: BP 184/106; PULSE 64; RESP 17; TEMP 98.2
== END 2024-01-29 17:29 | disposition home or self-care (01) ==
LOC: EC 12:03
DX: S92.321A Displaced fracture of second metatarsal bone, right foot, initial encounter for closed fracture (principal); S92.331A Displaced fracture of third metatarsal bone, right foot, initial encounter for closed fracture; S92.341A Displaced fracture of fourth metatarsal bone, right foot, initial encounter for closed fracture; R55 Syncope and collapse; F17.200 Nicotine dependence, unspecified, uncomplicated; Z88.0 Allergy status to penicillin; W18.30XA Fall on same level, unspecified, initial encounter; Y92.009 Unspecified place in unspecified non-institutional (private) residence as the place of occurrence of the external cause; Y93.01 Activity, walking, marching and hiking
CPT/HCPCS: 29515; 36415; 71046; 80053; 84484; 85025; 85610; 85730; 93005; 99285

== ENCOUNTER 2024-07-22 19:36 | Inpatient (IN) | payer BC ==
--- NOTE | 2024-07-22 20:36 | XR ---
EXAMINATION TYPE: XR chest 2V DATE OF EXAM: 07/22/2024 8:18 PM CLINICAL INDICATION:Male, 49 years old with history of Chest Pain; [facility] COMPARISON: Chest radiograph 01/29/2024 TECHNIQUE: XR chest 2V Frontal and lateral views of the chest. FINDINGS: Lungs/Pleura: There is no evidence of pleural effusion, focal consolidation, or pneumothorax. Pulmonary vascularity: Unremarkable. Heart/mediastinum: Cardiomediastinal silhouette is unremarkable. Musculoskeletal: No acute osseous pathology. IMPRESSION: No acute cardiopulmonary disease/process. [facility] Brendan Dawkins, , 07/22/2024 8:34 PM
--- NOTE | 2024-07-22 21:18 | ED ---
General Adult HPI - General Chief complaint: Chest Pain Stated complaint: chest pain, jaw pain, L arm pain Time Seen by Provider: 07/22/24 21:17 Source: patient Mode of arrival: ambulatory Limitations: no limitations - History of Present Illness Initial comments: Guilherme is a pleasant 9-year-old male with a known history of hypertension coronary artery disease status post stenting for an IN in the summer 2022. Patient states that due to insurance issues he has been unable to take his prescribed medications aside from taking occasional aspirin. Patient states that he is not got a primary care physician and has not had cardiology follow- up. Patient states that around 3 PM today he developed pain in his chest that radiated up to his jaw and to his left shoulder pain seem to get better with resting but worse when he did any activity including just getting up to walk to the restroom. Patient states he also had a metallic taste in his mouth which he experienced with his last heart attack. Due to the constellation of symptoms being identical to previous IN patient decided come to the ER for evaluation. - Related Data Previous Rx's Medication Instructions Recorded Aspirin 81 mg PO DAILY #30 tab 03/11/22 Atorvastatin [Lipitor] 80 mg PO DAILY #30 tab 03/11/22 Losartan [Cozaar] 50 mg PO DAILY #30 tab 03/11/22 Metoprolol Tartrate [Lopressor] 50 mg PO BID #60 tab 03/11/22 Prasugrel [Effient] 10 mg PO DAILY #30 tab 03/11/22 Spironolactone [Aldactone] 25 mg PO DAILY #30 tab 03/11/22 HYDROcodone/APAP 7.5-325MG [[place] 1 tab PO Q4HR PRN #18 tab 01/29/24 7.5-325] Allergies Allergy/AdvReac Type Severity Reaction Status Date / Time Penicillins Allergy Anaphylaxis Verified 07/22/24 19:44 Review of Systems ROS Statement: Those systems with pertinent positive or pertinent negative responses have been documented in the HPI. ROS Other: All systems not noted in ROS Statement are negative. Past Medical History Past Medical History: GERD/Reflux, Hypertension, Myocardial Infarction ([place]) Additional Past Medical History / Comment(s): mono History of Any Multi-Drug Resistant Organisms: None Reported Past Surgical History: Heart Catheterization With Stent Additional Past Surgical History / Comment(s): 2 cardiac stents, Past Anesthesia/Blood Transfusion Reactions: Family Hisory of Malignant Hyperthermia Past Psychological History: Anxiety, Depression Smoking Status: Current every day smoker Past Alcohol Use History: None Reported Past Drug Use History: Marijuana, Methamphetamine - Past Family History family Family Medical History: Liver Disease General Exam - General Exam Comments Initial Comments: Physical Exam GENERAL: Patient is well-developed and well-nourished. Patient is nontoxic and well- hydrated and is in no distress. HENT: Normocephalic, Atraumatic. EYES: PERRL, EOMI PULMONARY: Unlabored respirations. No audible rales rhonchi or wheezing was noted. CARDIOVASCULAR: There is a regular rate and rhythm without any murmurs gallops or rubs. ABDOMEN: Soft and nontender with normal bowel sounds. SKIN: Skin is clear with no lesions or rashes and otherwise unremarkable. : Deferred NEUROLOGIC: Patient is alert and oriented x3. Moving all extremities spontaneously MUSCULOSKELETAL: Normal extremities with adequate strength and full range of motion. No lower extremity swelling or edema. No calf tenderness. PSYCHIATRIC: Normal psychiatric evaluation. Limitations: no limitations Course Vital Signs 07/22/24 07/22/24 07/22/24 19:44 22:27 23:19 Temperature 98.5 F Pulse Rate 71 66 64 Respiratory 18 14 16 Rate Blood Pressure 212/117 183/126 208/122 O2 Sat by Pulse 100 97 97 Oximetry 07/23/24 07/23/24 07/23/24 00:18 01:08 02:00 Temperature Pulse Rate 61 66 67 Respiratory 14 16 14 Rate Blood Pressure 190/126 195/129 208/134 O2 Sat by Pulse 98 98 98 Oximetry 07/23/24 07/23/24 02:30 03:17 Temperature Pulse Rate 56 L 59 L Respiratory 15 14 Rate Blood Pressure 167/119 181/112 O2 Sat by Pulse 98 99 Oximetry - Reevaluation(s) Reevaluation #1: 07/23/24 01:31 Patient remains hypertensive despite nitro paste, IV metoprolol and IV Nitro ordered EKG Findings - EKG Comments: EKG Findings:: EKG interpreted by me EKG obtained due to complaint of chest pain, EKG obtained at 1949 rate is 68 rhythm is sinus normal intervals ID 158 QRS 111 QTc 398 there are no acute ST elevations, ST depressions noted in V6 no evidence of acute infarction. Repeat EKG obtained due to elevated troponin, r epeat EKG obtained at 2237 rate is 63 rhythm is sinus normal intervals ID 151 QRS 110 QTc 421 there are no acute ST elevations or depressions no evidence of acute ischemia or infarction Medical Decision Making - Medical Decision Making Was pt. sent in by a medical professional or institution (JJ Mariscal, LABORATORY TESTER, urgent care, hospital, or senior care...) When possible be specific @ -No Did you speak to anyone other than the patient for history (EMS, parent, family, police, friend...)? What history was obtained from this source @ -No Did you review nursing and triage notes (agree or disagree)? Why? @ -I reviewed and agree with nursing and triage notes Were old charts reviewed (outside hosp., previous admission, EMS record, old EKG, old radiological studies, urgent care reports/EKG's, senior care records)? Report findings @ -Previous hospitalization was reviewed Differential Diagnosis (chest pain, altered mental status, abdominal pain women, abdominal pain men, vaginal bleeding, weakness, fever, dyspnea, syncope, headache, dizziness, GI bleed, back pain, seizure, CVA, palpatations, mental health)? @ -Differential Chest Pain: Stable Angina, Unstable Angina, STEMI, NSTEMI Aortic Dissection, Pneumothorax, Musculoskeletal, Esophageal Spasm GERD, Cholecystitis, Pancreatitis, Zoster, this is not meant to be an all-inclusive list. EKG interpreted by me (3pts min.). @ -As above X-rays interpreted by me (1pt min.). @ -No acute findings CT interpreted by me (1pt min.). @ -None done U/S interpreted by me (1pt. min.). @ -None done What testing was considered but not performed or refused? (CT, X-rays, U/S, labs)? Why? @ -None What meds were considered but not given or refused? Why? @ -Oral metoprolol was held due to bradycardia Did you discuss the management of the patient with other professionals (professionals i.e. JJ Mariscal, LABORATORY TESTER, lab, RT, psych nurse, psychosocial rehabilitation counselor, paving and surfacing labourer, teacher, animal control officer, child welfare caseworker)? Give summary @ -Discussed with admitting provider Was smoking cessation discussed for >3mins.? @ -No Was critical care preformed (if so, how long)? @ -Yes, 30 minutes Were there social determinants of health that impacted care today? How? (Homelessness, low income, unemployed, alcoholism, drug addiction, transportation, low edu. Level, literacy, decrease access to med. care, [facility], rehab)? @ -Lack of insurance coverage, and ability to obtained medications Was there de-escalation of care discussed even if they declined (Discuss DNR or withdrawal of care, Hospice)? DNR status @ -No What co-morbidities impacted this encounter? (DM, HTN, Smoking, COPD, CAD, Cancer, CVA, ARF, Chemo, Hep., AIDS, mental health diagnosis, sleep apnea, morbid obesity)? @ -Hypertension, coronary artery disease Was patient admitted / discharged? Hospital course, mention meds given and route, prescriptions, significant lab abnormalities, going to OR and other pertinent info. @ -Admit The patient was seen and evaluated history is obtained from patient. History is very concerning for cardiac etiology of chest pain, labs and EKG were obtained. EKG had no signs of acute infarction. Troponin was elevated patient was started on heparin blood pressure minimally improved with Nitropaste he was given IV metoprolol and started on nitro drip for both chest pain and hypertension. Repeat troponin was uptrending. Patient was chest pain-free at rest had chest pain with exertion only. At this time patient will be admitted for an NSTEMI. Did report feeling much better requesting to go home because he came straight to the hospital from work and did not go home to check on his dog and nobody has been able to check on his dog. Discussed with the patient that he is showing signs of a heart attack and I would advise that he remain in the hospital with heparin until evaluated by cardiology. Patient was agreeable. Undiagnosed new problem with uncertain prognosis? @ -No Drug Therapy requiring intensive monitoring for toxicity (Heparin, Nitro, Insulin, Cardizem)? @ -Heparin Were any procedures done? @ -No Diagnosis/symptom? @ -NSTEMI Acute, or Chronic, or Acute on Chronic? @ -Acute Uncomplicated (without systemic symptoms) or Complicated (systemic symptoms)? @ -Default Side effects of treatment? @ -No Exacerbation, Progression, or Severe Exacerbation? @ -No Poses a threat to life or bodily function? How? (Chest pain, [place], [place], pneumonia, PE, COPD, DKA, ARF, appy, cholecystitis, CVA, Diverticulitis, Homicidal, Suicidal, threat to staff... and all critical care pts) @ -Yes - Lab Data Result diagrams: 07/22/24 21:39 07/22/24 21:39 Lab Results 07/22/24 07/22/24 07/22/24 Range/Units 21:39 21:39 21:39 WBC 11.0 H (3.8-10.6) k/uL RBC 4.98 (4.30-5.90) m/uL Hgb 14.2 (13.0-17.5) gm/dL Hct 44.8 (39.0-53.0) % MCV 90.0 (80.0-100.0) fL MCH 28.6 (25.0-35.0) pg MCHC 31.7 (31.0-37.0) g/dL RDW 13.5 (11.5-15.5) % Plt Count 291 (150-450) k/uL MPV 7.9 Neutrophils % 77 % Lymphocytes % 18 % Monocytes % 3 % Eosinophils % 2 % Basophils % 0 % Neutrophils # 8.5 H (1.3-7.7) k/uL Lymphocytes # 2.0 (1.0-4.8) k/uL Monocytes # 0.3 (0-1.0) k/uL Eosinophils # 0.2 (0-0.7) k/uL Basophils # 0.0 (0-0.2) k/uL PT 10.7 (10.0-12.5) sec INR 1.0 (<1.2) APTT 27.0 (22.0-30.0) sec Sodium 139 (137-145) mmol/L Potassium 4.5 (3.5-5.1) mmol/L Chloride 110 H (98-107) mmol/L Carbon Dioxide 26 (22-30) mmol/L Anion Gap 3 mmol/L BUN 18 (9-20) mg/dL Creatinine 1.21 (0.66-1.25) mg/dL Est GFR (CKD-EPI)AfAm 82 (>60 ml/min/1.73 sqM) Est GFR (CKD-EPI)NonAf 71 (>60 ml/min/1.73 sqM) Glucose 94 (74-99) mg/dL Calcium 9.5 (8.4-10.2) mg/dL Magnesium 2.1 (1.6-2.3) mg/dL Total Bilirubin 0.4 (0.2-1.3) mg/dL AST 29 (17-59) U/L ALT 29 (4-49) U/L Alkaline Phosphatase 97 (38-126) U/L Troponin I (0.000-0.034) ng/mL Total Protein 7.3 (6.3-8.2) g/dL Albumin 4.5 (3.5-5.0) g/dL 07/22/24 Range/Units 21:39 WBC (3.8-10.6) k/uL RBC (4.30-5.90) m/uL Hgb (13.0-17.5) gm/dL Hct (39.0-53.0) % MCV (80.0-100.0) fL MCH (25.0-35.0) pg MCHC (31.0-37.0) g/dL RDW (11.5-15.5) % Plt Count (150-450) k/uL MPV Neutrophils % % Lymphocytes % % Monocytes % % Eosinophils % % Basophils % % Neutrophils # (1.3-7.7) k/uL Lymphocytes # (1.0-4.8) k/uL Monocytes # (0-1.0) k/uL Eosinophils # (0-0.7) k/uL Basophils # (0-0.2) k/uL PT (10.0-12.5) sec INR (<1.2) APTT (22.0-30.0) sec Sodium (137-145) mmol/L Potassium (3.5-5.1) mmol/L Chloride (98-107) mmol/L Carbon Dioxide (22-30) mmol/L Anion Gap mmol/L BUN (9-20) mg/dL Creatinine (0.66-1.25) mg/dL Est GFR (CKD-EPI)AfAm (>60 ml/min/1.73 sqM) Est GFR (CKD-EPI)NonAf (>60 ml/min/1.73 sqM) Glucose (74-99) mg/dL Calcium (8.4-10.2) mg/dL Magnesium (1.6-2.3) mg/dL Total Bilirubin (0.2-1.3) mg/dL AST (17-59) U/L ALT (4-49) U/L Alkaline Phosphatase (38-126) U/L Troponin I 0.224 H* (0.000-0.034) ng/mL Total Protein (6.3-8.2) g/dL Albumin (3.5-5.0) g/dL Disposition Clinical Impression: NSTEMI (non-ST elevated myocardial infarction) Disposition: ADMITTED IP TO THIS HOSP Condition: Stable Is patient prescribed a controlled substance at d/c from ED?: No
[2024-07-22 21:55] LABS: Basophils % (A) 0 %; Eosinophils # (A) 0.2 k/uL (0-0.7); Eosinophils % (A) 2 %; HCT 44.8 % (39.0-53.0); HGB 14.2 gm/dL (13.0-17.5); Lymphocytes % (A) 18 %; MCH 28.6 pg (25.0-35.0); MCHC 31.7 g/dL (31.0-37.0); Mean Platelet Volume 7.9; Monocytes # (A) 0.3 k/uL (0-1.0); Monocytes % (A) 3 %; Neutrophils # (A) 8.5 k/uL (1.3-7.7); Neutrophils % (A) 77 %; Platelet Count 291 k/uL (150-450); RBC 4.98 m/uL (4.30-5.90); RDW 13.5 % (11.5-15.5)
[2024-07-22] MEDS: ASPIRIN 81 MG PO STA (21:58)
[2024-07-22] MEDS: NITROGLYCERIN OINT 1 INCH/GM PACKET TOPICAL STA (21:59)
[2024-07-22 22:03] LABS: Prothrombin Time 10.7 sec (10.0-12.5)
[2024-07-22 22:13] LABS: ALT 29 U/L (4-49); AST 29 U/L (17-59); African American GFR (CKD) 82 (>60 ml/min/1.73 sqM); Albumin 4.5 g/dL (3.5-5.0); Alkaline Phosphatase 97 U/L (38-126); Anion Gap 3 mmol/L; Blood Urea Nitrogen 18 mg/dL (9-20); Calcium 9.5 mg/dL (8.4-10.2); Carbon Dioxide 26 mmol/L (22-30); Chloride 110 mmol/L (98-107); Glucose 94 mg/dL (74-99); Magnesium 2.1 mg/dL (1.6-2.3); Non-African American GFR(CKD) 71 (>60 ml/min/1.73 sqM); Potassium 4.5 mmol/L (3.5-5.1); Sodium 139 mmol/L (137-145); Total Bilirubin 0.4 mg/dL (0.2-1.3); Total Protein 7.3 g/dL (6.3-8.2)
[2024-07-22] MEDS: MORPHINE SULFATE 4 MG/ML SYRINGE IVP STA (22:22)
[2024-07-22] MEDS ORDERED: NITROGLYCERIN SL TABS 0.4 MG TAB SUBLINGUAL PRN (22:44)
[2024-07-22] MEDS: HEPARIN SOD,PORK IN 0.45% NACL 25,000 UNIT in 0.45% NACL 1 250ML.BAG IV SCH (23:09)
[2024-07-22] MEDS: HEPARIN SODIUM 1,000 UN/ML (10ML VL) IV ONE (23:10)
[2024-07-23] MEDS: METOPROLOL TARTRATE 5 MG/5 ML VIAL IVP STA (01:25)
[2024-07-23] MEDS: METOPROLOL TARTRATE 50 MG TAB PO STA (01:27)
[2024-07-23] MEDS: NITROGLYCERIN-D5W PMX 50 MG in DEXTROSE/WATER 1 250ML.BAG IV SCH (01:54)
[2024-07-23] MEDS: HEPARIN SODIUM 1,000 UN/ML (10ML VL) MISCELLANE ONE (08:30)
[2024-07-23] MEDS: ASPIRIN 325 MG TAB PO SCH (08:30)
[2024-07-23] MEDS: SODIUM CHLORIDE 0.9% 1,000 ML in EMPTY BAG 1 BAG IV SCH (10:03)
[2024-07-23] MEDS: carvediloL 3.125 MG TAB PO SCH ×2 (10:03→16:11)
[2024-07-23 11:00] LABS: Chol/HDL Ratio 4.06 Ratio; LDL Cholesterol,Calculated 100.8 mg/dL (0.0-131.0); VLDL Calculation 18.32 mg/dL (5.00-40.00)
[2024-07-23] MEDS: NITROGLYCERIN-D5W PMX 50 MG in DEXTROSE/WATER 1 250ML.BAG IV ONE ×2 (11:21→14:49)
[2024-07-23] MEDS: HEPARIN SOD,PORK IN 0.45% NACL 25,000 UNIT in 0.45% NACL 1 250ML.BAG IV ONE (11:21)
--- NOTE | 2024-07-23 11:26 | P.HPIM ---
History of Present Illness H&P Date: 07/23/24 History of present illness; patient is a 49-year-old gentleman with past medical history significant for hypertension, hyperlipidemia, coronary artery disease with last stent in 2022 who presented the ER because of chest pain. Patient has been noncompliant with his cardiac medications because of cost issues. Patient stated he was all right yesterday when around 3 PM he started having chest pain that was central location, pressure-like, rating to his jaw and left shoulder. Pain was aggravated by exertion and relieved by resting. There is no complaint of palpitation. There is no complaint of shortness of breath. Patient denies any swelling of feet. Because of this chest pain patient became concerned that, and decided to come the ER Initial lab work done in the ER showed WBC 11, hemoglobin 14.2, platelet count 291, sodium 139, potassium 4.5, BUN 18, creatinine 1.21, troponin 0.224 EKG done in the ER showed heart rate of 63, no ST segment elevation or depression seen, no T-wave inversions seen. Chest x-ray done in the ER showed no acute cardiopulmonary process Patient admitted to internal medicine service REVIEW OF SYSTEMS: CONSTITUTIONAL: No fever, no malaise, no fatigue. HEENT: No recent visual problems or hearing problems. Denied any sore throat. CARDIOVASCULAR: As mentioned above PULMONARY: As mentioned above GASTROINTESTINAL: No diarrhea, no nausea, no vomiting, no abdominal pain. NEUROLOGICAL: No headaches, no weakness, no numbness. HEMATOLOGICAL: Denies any bleeding or petechiae. GENITOURINARY: Denies any burning micturition, frequency, or urgency. MUSCULOSKELETAL/RHEUMATOLOGICAL: Denies any joint pain, swelling, or any muscle pain. ENDOCRINE: Denies any polyuria or polydipsia. The rest of the 14-point review of systems is negative. PHYSICAL EXAMINATION: GENERAL: The patient is alert and oriented x3, not in any acute distress. Well developed, well nourished. HEENT: Pupils are round and equally reacting to light. EOMI. No scleral icterus. No conjunctival pallor. Normocephalic, atraumatic. No pharyngeal erythema. No thyromegaly. CARDIOVASCULAR: S1 and S2 present. No murmurs, rubs, or gallops. PULMONARY: Chest is clear to auscultation, no wheezing or crackles. ABDOMEN: Soft, nontender, nondistended, normoactive bowel sounds. No palpable organomegaly. MUSCULOSKELETAL: No joint swelling or deformity. EXTREMITIES: No cyanosis, clubbing, or pedal edema. NEUROLOGICAL: Gross neurological examination did not reveal any focal deficits. SKIN: No rashes. Assessment and plan NSTEMI Hypertension Hyperlipidemia History of coronary artery disease Monitor vital signs Monitor CBC Monitor CMP Continue telemetry monitoring Trend troponins Ordered 2D echo Start pharmacy to dose heparin Start aspirin, Lipitor Consult cardiology Labs and medication were reviewed.. Continue same treatment. Continue with symptomatic treatment. Resume home medication. Monitor labs and vitals. DVT and GI prophylaxis. Further recommendations as per clinical course of the patient Dictation was produced using [employer] dictation software. please excuse any grammatical, word or spelling errors. Past Medical History Past Medical History: GERD/Reflux, Hypertension, Myocardial Infarction ([place]) Additional Past Medical History / Comment(s): mono History of Any Multi-Drug Resistant Organisms: None Reported Past Surgical History: Heart Catheterization With Stent Additional Past Surgical History / Comment(s): 2 cardiac stents, Past Anesthesia/Blood Transfusion Reactions: Family Hisory of Malignant Hyperthermia Past Psychological History: Anxiety, Depression Smoking Status: Current every day smoker Past Alcohol Use History: None Reported Past Drug Use History: Marijuana, Methamphetamine - Past Family History family Family Medical History: Liver Disease Medications and Allergies Home Medications Medication Instructions Recorded Confirmed Type No Known Home Medications 07/23/24 07/23/24 History Allergies Allergy/AdvReac Type Severity Reaction Status Date / Time Penicillins Allergy Anaphylaxis Verified 07/23/24 11:26 succinylcholine Allergy FAMILY Verified 07/23/24 11:26 HISTORY Physical Exam Vitals: Vital Signs Temp Pulse Resp BP Pulse Ox 07/23/24 08:32 57 L 20 172/116 98 07/23/24 07:29 97.8 F 54 L 18 164/105 97 07/23/24 06:00 52 L 12 140/92 97 07/23/24 04:45 53 L 11 L 119/74 96 07/23/24 04:30 67 13 124/76 96 07/23/24 04:15 54 L 12 132/90 07/23/24 04:00 55 L 10 L 139/91 96 07/23/24 03:45 54 L 12 145/98 97 07/23/24 03:30 58 L 14 168/105 97 07/23/24 03:17 59 L 14 181/112 99 07/23/24 02:30 56 L 15 167/119 98 07/23/24 02:00 67 14 208/134 98 07/23/24 01:08 66 16 195/129 98 07/23/24 00:18 61 14 190/126 98 07/22/24 23:19 64 16 208/122 97 07/22/24 22:27 66 14 183/126 97 07/22/24 19:44 98.5 F 71 18 212/117 100 Intake and Output 07/22/24 07/23/24 07/23/24 22:59 06:59 14:59 Intake Total 15.30 102.675 Balance 15.30 102.675 Intake: Intake, IV Titration 15.30 102.675 Amount Heparin Sod,Pork in 0.45% 93 NaCl 25,000 unit In 0.45 % NaCl 1 250ml.bag @ 9. 186 UNITS/KG/HR 10 mls/hr IV .Q24H KATHLEEN Rx#: [id number] Nitroglycerin-D5w Pmx 50 15.30 9.675 mg In Dextrose/Water 1 250ml.bag @ 5 MCG/MIN 1.5 mls/hr IV .Q24H KATHLEEN Rx#: [id number] Other: Weight 108.862 kg Results CBC & Chem 7: 07/22/24 21:39 07/22/24 21:39 Labs: Abnormal Lab Results - Last 24 Hours (Table) 07/22/24 07/22/24 07/22/24 Range/Units 21:39 21:39 21:39 WBC 11.0 H (3.8-10.6) k/uL Neutrophils # 8.5 H (1.3-7.7) k/uL APTT (22.0-30.0) sec Chloride 110 H (98-107) mmol/L Troponin I 0.224 H* (0.000-0.034) ng/mL 07/22/24 07/23/24 07/23/24 Range/Units 23:56 06:53 06:53 WBC (3.8-10.6) k/uL Neutrophils # (1.3-7.7) k/uL APTT 35.1 H (22.0-30.0) sec Chloride (98-107) mmol/L Troponin I 0.511 H* 1.720 H* (0.000-0.034) ng/mL
--- NOTE | 2024-07-23 13:14 | P.CRDCN ---
History of Present Illness History of present illness: This is Dr. Appiah dictating a consult on this patient The patient was interviewed and examined IMPRESSION / ASSESSMENT: Non-Q wave myocardial infarction Known coronary artery status post stenting in the past with Dr. Keenan 2 years back Noncompliant with his medications on account of financial issues Hypertension PLAN: Continue IV heparin, continue IV nitroglycerin Continue baby aspirin, I started atorvastatin 80 mg p.o. daily this morning Carvedilol started this morning Add losartan 50 mg p.o. daily for blood pressure management and maximize Proceed with coronary angiography today with Dr. Keenan HPI Patient started experiencing chest discomfort that radiated up to the jaw and left shoulder with activity and improved with rest He also has a metallic taste in the mouth which reminded him of his previous heart attack. He came to the hospital and was evaluated. His twelve-lead EKG shows dynamic changes in V4 through V6 as well as 1 and aVL He is currently on IV heparin and is pain-free on IV nitroglycerin drip His cardiac enzymes are abnormal with a rising trend consistent with a non-Q wave myocardial infarction He lost his job 2 years back and did not take any of his cardiac medications thereafter ROS: No fever chills or rigors, no cough, phlegm or expectoration, no nausea, vomiting or diarrhea, no hematuria, dysuria, no musculoskeletal complaints, no strokes or seizures, no skin lesions. EXAMINATION: 140/92 mmHg pulse rate in the 50s afebrile Breath sounds are clear no rhonchi no crackles Heart sounds S1-S2 normal no murmurs Clear lungs no rhonchi no crackles January REVIEW OF LABS, ECG & MEDICAL DATA Chest x-ray shows no acute cardiopulmonary disease process Past Medical History Past Medical History: GERD/Reflux, Hypertension, Myocardial Infarction ([place]) Additional Past Medical History / Comment(s): mono History of Any Multi-Drug Resistant Organisms: None Reported Past Surgical History: Heart Catheterization With Stent Additional Past Surgical History / Comment(s): 2 cardiac stents, Past Anesthesia/Blood Transfusion Reactions: Family Hisory of Malignant Hyperthermia Past Psychological History: Anxiety, Depression Smoking Status: Current every day smoker Past Alcohol Use History: None Reported Past Drug Use History: Marijuana, Methamphetamine - Past Family History family Family Medical History: Liver Disease Medications and Allergies Home Medications Medication Instructions Recorded Confirmed Type No Known Home Medications 07/23/24 07/23/24 History Allergies Allergy/AdvReac Type Severity Reaction Status Date / Time Anesthetics - Ella Type- Allergy MALIGNANT Verified 07/23/24 11:28 Parabens HYPERTHERMIA Penicillins Allergy Anaphylaxis Verified 07/23/24 11:26 succinylcholine Allergy FAMILY Verified 07/23/24 11:26 HISTORY Physical Exam Vitals: Vital Signs Temp Pulse Pulse Resp BP BP BP 07/23/24 11:28 97.8 F 62 18 182/104 177/100 07/23/24 09:59 55 L 18 143/93 07/23/24 08:32 57 L 20 172/116 07/23/24 07:29 97.8 F 54 L 18 164/105 07/23/24 06:00 52 L 12 140/92 07/23/24 04:45 53 L 11 L 119/74 07/23/24 04:30 67 13 124/76 07/23/24 04:15 54 L 12 132/90 07/23/24 04:00 55 L 10 L 139/91 07/23/24 03:45 54 L 12 145/98 07/23/24 03:30 58 L 14 168/105 07/23/24 03:17 59 L 14 181/112 07/23/24 02:30 56 L 15 167/119 07/23/24 02:00 67 14 208/134 07/23/24 01:08 66 16 195/129 07/23/24 00:18 61 14 190/126 07/22/24 23:19 64 16 208/122 07/22/24 22:27 66 14 183/126 07/22/24 19:44 98.5 F 71 18 212/117 Pulse Ox 07/23/24 11:28 99 07/23/24 09:59 97 07/23/24 08:32 98 07/23/24 07:29 97 07/23/24 06:00 97 07/23/24 04:45 96 07/23/24 04:30 96 07/23/24 04:15 07/23/24 04:00 96 07/23/24 03:45 97 07/23/24 03:30 97 07/23/24 03:17 99 07/23/24 02:30 98 07/23/24 02:00 98 07/23/24 01:08 98 07/23/24 00:18 98 07/22/24 23:19 97 07/22/24 22:27 97 07/22/24 19:44 100 Intake and Output 07/22/24 07/23/24 07/23/24 22:59 06:59 14:59 Intake Total 15.30 102.675 Balance 15.30 102.675 Intake: Intake, IV Titration 15.30 102.675 Amount Heparin Sod,Pork in 0.45% 93 NaCl 25,000 unit In 0.45 % NaCl 1 250ml.bag @ 9. 186 UNITS/KG/HR 10 mls/hr IV .Q24H [facility] Rx#: [id number] Nitroglycerin-D5w Pmx 50 15.30 9.675 mg In Dextrose/Water 1 250ml.bag @ 5 MCG/MIN 1.5 mls/hr IV .Q24H [facility] Rx#: [id number] Other: Weight 108.862 kg Results 07/22/24 21:39 07/22/24 21:39 Cardiac Enzymes 07/22/24 07/22/24 07/22/24 Range/Units 21:39 21:39 23:56 AST 29 (17-59) U/L Troponin I 0.224 H* 0.511 H* (0.000-0.034) ng/mL 07/23/24 Range/Units 06:53 AST (17-59) U/L Troponin I 1.720 H* (0.000-0.034) ng/mL Coagulation 07/22/24 07/23/24 Range/Units 21:39 06:53 PT 10.7 (10.0-12.5) sec APTT 27.0 35.1 H (22.0-30.0) sec Lipids 07/23/24 Range/Units 06:53 Triglycerides 91.60 (0.00-149.00) mg/dL Cholesterol 158.00 (0.00-200.00) mg/dL HDL Cholesterol 38.90 L (40.00-60.00) mg/dL Cholesterol/HDL Ratio 4.06 Ratio CBC 07/22/24 Range/Units 21:39 WBC 11.0 H (3.8-10.6) k/uL RBC 4.98 (4.30-5.90) m/uL Hgb 14.2 (13.0-17.5) gm/dL Hct 44.8 (39.0-53.0) % Plt Count 291 (150-450) k/uL Comprehensive Metabolic Panel 07/22/24 Range/Units 21:39 Sodium 139 (137-145) mmol/L Potassium 4.5 (3.5-5.1) mmol/L Chloride 110 H (98-107) mmol/L Carbon Dioxide 26 (22-30) mmol/L BUN 18 (9-20) mg/dL Creatinine 1.21 (0.66-1.25) mg/dL Glucose 94 (74-99) mg/dL Calcium 9.5 (8.4-10.2) mg/dL AST 29 (17-59) U/L ALT 29 (4-49) U/L Alkaline Phosphatase 97 (38-126) U/L Total Protein 7.3 (6.3-8.2) g/dL Albumin 4.5 (3.5-5.0) g/dL Current Medications Generic Name Dose Route Start Last Admin Trade Name Freq PRN Reason Stop Dose Admin Alprazolam 0.25 mg 07/23/24 09:24 Alprazolam 0.25 Mg Tab PO Q6HR PRN Mild Anxiety Alprazolam 0.5 mg 07/23/24 09:24 Alprazolam 0.5 Mg Tab PO Q6HR PRN Moderate Anxiety Aspirin 81 mg 07/24/24 09:00 Aspirin 81 Mg PO DAILY [facility] Atorvastatin Calcium 80 mg 07/24/24 09:00 Atorvastatin 80 Mg Tab PO DAILY [facility] Carvedilol 1.5625 mg 07/23/24 09:30 07/23/24 10:03 Carvedilol 3.125 Mg Tab PO 1.5625 mg BID-W/MEALS [facility] Administration Heparin Sodium/Sodium Chloride 250 mls @ 10 mls/hr 07/22/24 22:45 07/23/24 08:27 25,000 unit/ Sodium Chloride IV 11.186 units/kg/hr .Q24H [facility] 12.177 mls/hr Administration Protocol 9.186 UNITS/KG/HR Nitroglycerin/Dextrose 50 mg/ 250 mls @ 1.5 mls/hr 07/23/24 01:15 07/23/24 08:34 IV Solution IV 20 mcg/min .Q24H [facility] 6 mls/hr Titration Protocol 5 MCG/MIN Heparin Sodium (Porcine) 10, 1,001 mls @ 999 mls/hr 07/24/24 07:00 000 unit/ Sodium Chloride IRRIGATION 07/24/24 23:00 ONCE PRN INTRA-OP Heparin Sodium (Porcine) 2,500 250.5 mls @ 250 mls/hr 07/24/24 07:00 unit/ Sodium Chloride IRRIGATION 07/24/24 23:00 ONCE PRN INTRA-OP Sodium Chloride 1,000 ml/ IV 1,000 mls @ 108.862 mls/hr 07/23/24 09:30 07/23/24 10:03 Solution IV 108.862 mls/hr .Q9H12M [facility] Administration 1 ML/KG/HR Nitroglycerin 0.4 mg 07/22/24 22:44 Nitroglycerin Sl Tabs 0.4 Mg Tab SUBLINGUAL Q5M PRN Chest Pain Intake and Output 07/22/24 07/23/24 07/23/24 22:59 06:59 14:59 Intake Total 15.30 102.675 Balance 15.30 102.675 Intake: Intake, IV Titration 15.30 102.675 Amount Heparin Sod,Pork in 0.45% 93 NaCl 25,000 unit In 0.45 % NaCl 1 250ml.bag @ 9. 186 UNITS/KG/HR 10 mls/hr IV .Q24H [facility] Rx#: [id number] Nitroglycerin-D5w Pmx 50 15.30 9.675 mg In Dextrose/Water 1 250ml.bag @ 5 MCG/MIN 1.5 mls/hr IV .Q24H [facility] Rx#: [id number] Other: Weight 108.862 kg 07/22/24 21:39 07/22/24 21:39
[2024-07-23] MEDS: fentaNYL (PF) 50 MCG/ML 2 ML AMP IVP ONE ×2 (13:42→14:41)
[2024-07-23] MEDS: MIDAZOLAM 2 MG/2 ML VIAL IVP ONE ×3 (13:43→14:41)
[2024-07-23] MEDS: LIDOCAINE 1% INJ 10MG/ML (20 ML MDV) SQ ONE (13:48)
[2024-07-23] MEDS: HEPARIN SODIUM 1,000 UN/ML (10ML VL) IVP ONE (13:53)
[2024-07-23] MEDS: VERAPAMIL SYRINGE (5 MG/10 ML) INTRAARTER ONE (13:55)
[2024-07-23] MEDS: SODIUM CHLORIDE 0.9% 1,000 ML IV ONE (13:57)
[2024-07-23] MEDS: TICAGRELOR 90 MG TAB PO ONE (14:12)
[2024-07-23] MEDS: hydrALAZINE HCL 20 MG/ML 1 ML VIAL IV ONE (14:17)
[2024-07-23] MEDS: IOPAMIDOL-370 100ML BTL INJ ONE (14:30)
[2024-07-23] MEDS: NITROGLYCERIN 1000MCG/10ML SYRINGE INTRACORON ONE (14:34)
[2024-07-23] MEDS: hydrALAZINE HCL 20 MG/ML 1 ML VIAL IVP ONE (14:36)
[2024-07-23] MEDS: IOPAMIDOL-300 100ML BTL INJ ONE (14:38)
[2024-07-23] MEDS ORDERED: ATROPINE SULFATE 0.1 MG/ML 10ML SYRINGE IV PRN (14:55)
[2024-07-23] MEDS ORDERED: MAG HYDROX/AL HYDROX/SIMETH 30 ML CUP PO PRN (14:55)
[2024-07-23] MEDS ORDERED: RX INFO: IV CONTRAST WAS GIVEN 1 EACH MISC MISCELLANE PRN (14:55)
[2024-07-23] MEDS ORDERED: ZOLPIDEM 5 MG TAB PO PRN (14:55)
--- NOTE | 2024-07-23 15:12 | P.PRCINT ---
Percutaneous Coronary Int. - Percutaneous Coronary Intervention Percutaneous Coronary Intervention: PROCEDURES PERFORMED: Left heart catheterization, bilateral coronary angiography, ultrasound guided arterial access, IVUS RCA, PCI RCA with a 4.0 x 48mm Xience ELEN, post dilated with a 5.0mm NC balloon, Penumbra aspiration thrombectomy INDICATION: NSTEMI CONSENT:I have discussed the risks, benefits and alternative therapies for the above-mentioned procedure and for both sedation/analgesia as well as necessary blood product administration, if indicated, as they pertain to this patient. The patient has indicated understanding and acceptance of the risks and procedures discussed. PROCEDURE: After the risks, benefits and alternatives of the above mentioned procedure explained in detail with the patient, informed consent was obtained. Patient was taken to the catheterization lab and prepped and draped in usual fashion. Ultrasound guidance was used to assess for arterial access. 1% lidocaine was used to anesthetize the right radial artery. A 6-Bur[place]ian sheath was placed in the right radial artery using modified Seldinger technique and ultrasound guidance. Left coronary angiography was performed with a 5-[place]ian JL 3.5 catheter and right coronary angiography was performed with a 5-[place]ian FR5 catheter in various views. A 5-[place] FR5 catheter was inserted into the left ventricle and pressure measurements were obtained. The right radial sheath was removed and a TR band was placed with hemostasis achieved. The patient tolerated the procedure well. Patient was transported back to the post catheterization holding area in stable condition. Conscious Sedation: Patient was monitored under the direct supervision of myself for conscious sedation using Versed and fentanyl for a total duration of 62 minutes HEMODYNAMICS: Ao: 191/108 LV: 181/18, LVEDP 25 SELECTIVE CORONARY ARTERIOGRAPHY: LEFT MAIN: The left main is a large caliber vessel which trifurcates into the LAD, ramus and circumflex. There is no significant stenosis. LEFT ANTERIOR DESCENDING CORONARY ARTERY: LAD is a large caliber vessel which wraps around to the apex. There is proximal LAD 10% stenosis and more focal mid LAD 60-70% somewhat ulcerated stenosis leading to a moderate caliber diagonal branch. Just after the diagonal branch there is 100% subtotal occlusion. LEFT CIRCUMFLEX CORONARY ARTERY: Left circumflex is a moderate to large caliber vessel with a patent distal circumflex stent and a mid circumflex 60-70% s tenosis. RAMUS INTERMEDIUS: Ramus intermedius is moderate to large caliber and has a patent mid stents and otherwise mild 20-30% stenosis.. RIGHT CORONARY ARTERY: The right coronary artery is a large caliber vessel which gives off a PDA and PLV branch and is the dominant vessel. There is an ulcerated plaque in the proximal RCA with more focal 95% stenosis of the mid RCA. Otherwise there are mild luminal irregularities. FINAL IMPRESSION: 1. CAD as described above including proximal RCA 95% stenosis, mid LAD 60-70% stenosis, mid to distal LAD 100% stenosis, ramus 20-30% stenosis, circumflex 70% stenosis and patent distal circumflex and ramus stents. 2. Elevated left sided filling pressures 3. Severely elevated blood pressure throughout procedure 4. S/p PCI RCA with a 4.0 x 48mm Xience ELEN, post dilated with a 5.0mm NC balloon PLAN: 1. Aggressive risk factor modification per most recent ACC/AHA guidelines. 2. Continue dual antiplatelets with aspirin and Brillinta for 12 months 3. More aggressive blood pressure control 4. Goal LDL < 70
[2024-07-23 15:14] LABS: Glucose,Whole Blood 116 mg/dL (70-110)
--- NOTE | 2024-07-23 15:30 | P.PRCINT ---
Percutaneous Coronary Int. - Percutaneous Coronary Intervention Percutaneous Coronary Intervention: PROCEDURES PERFORMED: Left heart catheterization, bilateral coronary angiography, ultrasound guided arterial access, IVUS RCA, PCI RCA with a 4.0 x 48mm Xience ELEN, post dilated with a 5.0mm NC balloon, Penumbra aspiration thrombectomy RCA INDICATION: NSTEMI CONSENT:I have discussed the risks, benefits and alternative therapies for the above-mentioned procedure and for both sedation/analgesia as well as necessary blood product administration, if indicated, as they pertain to this patient. The patient has indicated understanding and acceptance of the risks and procedures discussed. PROCEDURE: After the risks, benefits and alternatives of the above mentioned procedure explained in detail with the patient, informed consent was obtained. Patient was taken to the catheterization lab and prepped and draped in usual fashion. Ultrasound guidance was used to assess for arterial access. 1% lidocaine was used to anesthetize the right radial artery. A 6-Martiniquais sheath was placed in the right radial artery using modified Seldinger technique and ultrasound guidance. Left coronary angiography was performed with a 5-Martiniquais JL 3.5 catheter and right coronary angiography was performed with a 5-Martiniquais AR2 catheter in various views. A 5-Martiniquais AR2 catheter was inserted into the left ventricle and pressure measurements were obtained. The decision was made to perform PCI of the RCA. A 6-Martiniquais zachery 0.75 guide was using gauge the RCA. Heparin was given. A 0.014 BMW wire was advanced in the distal RCA. A number aspiration thrombectomy was performed. Balloon angioplasty was performed with a 3.5 mm balloon. Intravascular ultrasound showed diffuse disease of the proximal RCA with some ulcerated segments of the more proximal portion. Therefore decision made to treat the entire proximal lesion. A 4.0 x 48 mm Xience ELEN was placed from the proximal and mid RCA. The stent was postdilated with a 5.0 mm noncompliant balloon. Patient did develop chest pain with worsened extreme blood pressure despite giving patient a number of doses of hydralazine, nitroglycerin, nicardipine. Repeat intravascular ultrasound showed well expanded stents with majority of patient's symptoms appear in the related to microvascular dysfunction as well as related to extreme blood pressure elevation. Left coronary angiography was again imaged to ensure no change given continued chest pain. Final angiograms were performed. Preintervention there is 95% stenosis and NICOLLE-3 flow and postintervention there is less than 10% stenosis. The right radial sheath was removed and a TR band was placed with hemostasis achieved. The patient tolerated the procedure well. Patient was transported back to the post catheterization holding area in stable condition. Conscious Sedation: Patient was monitored under the direct supervision of myself for conscious sedation using Versed and fentanyl for a total duration of 62 minutes HEMODYNAMICS: Ao: 191/108 LV: 181/18, LVEDP 25 SELECTIVE CORONARY ARTERIOGRAPHY: LEFT MAIN: The left main is a large caliber vessel which trifurcates into the LAD, ramus and circumflex. There is no significant stenosis. LEFT ANTERIOR DESCENDING CORONARY ARTERY: LAD is a large caliber vessel which wraps around to the apex. There is proximal LAD 10% stenosis and more focal mid LAD 60-70% somewhat ulcerated stenosis leading to a moderate caliber diagonal branch. Just after the diagonal branch there is 100% subtotal occlusion. LEFT CIRCUMFLEX CORONARY ARTERY: Left circumflex is a moderate to large caliber vessel with a patent distal circumflex stent and a mid circumflex 60-70% st enosis. RAMUS INTERMEDIUS: Ramus intermedius is moderate to large caliber and has a patent mid stents and otherwise mild 20-30% stenosis.. RIGHT CORONARY ARTERY: The right coronary artery is a large caliber vessel which gives off a PDA and PLV branch and is the dominant vessel. There is an ulcerated plaque in the proximal RCA with more focal 95% stenosis of the mid RCA. Otherwise there are mild luminal irregularities. FINAL IMPRESSION: 1. CAD as described above including proximal RCA 95% stenosis, mid LAD 60-70% stenosis, mid to distal LAD 100% stenosis, ramus 20-30% stenosis, circumflex 70% stenosis and patent distal circumflex and ramus stents. 2. Elevated left sided filling pressures 3. Severely elevated blood pressure throughout procedure 4. S/p PCI RCA with a 4.0 x 48mm Xience ELEN, post dilated with a 5.0mm NC balloon PLAN: 1. Aggressive risk factor modification per most recent ACC/AHA guidelines. 2. Continue dual antiplatelets with aspirin and Brillinta for 12 months 3. More aggressive blood pressure control 4. Goal LDL < 70
[2024-07-23] MEDS: LOSARTAN 50 MG TAB PO SCH (16:01)
[2024-07-23 16:54] LABS: INR 1.2 (<1.2); Partial Thromboplastin Time 118.5 sec (22.0-30.0); Prothrombin Time 12.5 sec (10.0-12.5)
[2024-07-23] MEDS: ACETAMINOPHEN TAB 325 MG TAB PO PRN (19:03)
[2024-07-23] MEDS: ALPRAZolam 0.5 MG TAB PO PRN (20:12)
[2024-07-23] MEDS: TICAGRELOR 90 MG TAB PO SCH (20:12)
[2024-07-24] MEDS: ALPRAZolam 0.25 MG TAB PO PRN (03:56)
[2024-07-24] MEDS: hydrALAZINE HCL 20 MG/ML 1 ML VIAL IVP PRN (03:57)
[2024-07-24 04:17] LABS: Basophils # (A) 0.1 k/uL (0-0.2); Basophils % (A) 0 %; Eosinophils # (A) 0.2 k/uL (0-0.7); Eosinophils % (A) 2 %; HCT 36.9 % (39.0-53.0); HGB 12.1 gm/dL (13.0-17.5); Lymphocytes % (A) 18 %; MCH 29.2 pg (25.0-35.0); MCHC 32.8 g/dL (31.0-37.0); Mean Platelet Volume 8.6; Monocytes # (A) 0.7 k/uL (0-1.0); Monocytes % (A) 6 %; Neutrophils # (A) 8.1 k/uL (1.3-7.7); Neutrophils % (A) 73 %; Platelet Count 246 k/uL (150-450); RBC 4.15 m/uL (4.30-5.90); RDW 13.8 % (11.5-15.5); WBC 11.1 k/uL (3.8-10.6)
[2024-07-24 04:32] LABS: ALT 21 U/L (4-49); AST 37 U/L (17-59); African American GFR (CKD) 84 (>60 ml/min/1.73 sqM); Albumin 3.3 g/dL (3.5-5.0); Alkaline Phosphatase 69 U/L (38-126); Anion Gap 3 mmol/L; Blood Urea Nitrogen 21 mg/dL (9-20); Calcium 8.8 mg/dL (8.4-10.2); Carbon Dioxide 23 mmol/L (22-30); Chloride 111 mmol/L (98-107); Glucose 108 mg/dL (74-99); Non-African American GFR(CKD) 73 (>60 ml/min/1.73 sqM); Potassium 3.9 mmol/L (3.5-5.1); Sodium 137 mmol/L (137-145); Total Bilirubin 0.3 mg/dL (0.2-1.3); Total Protein 5.8 g/dL (6.3-8.2)
[2024-07-24] MEDS: POTASSIUM CHLORIDE ER 20 MEQ TAB.ER PO SCH (06:42)
[2024-07-24] MEDS ORDERED: HEPARIN SODIUM,PORCINE 10,000 UNIT in SODIUM CHLORIDE 0.9% 1,000 ML IRRIGATION PRN (07:00)
[2024-07-24] MEDS ORDERED: HEPARIN SODIUM,PORCINE (1 ML) 2,500 UNIT in SODIUM CHLORIDE 0.9% 250 ML IRRIGATION PRN (07:00)
[2024-07-24] MEDS: ATORVASTATIN 80 MG TAB PO SCH (09:31)
[2024-07-24] MEDS: ASPIRIN 81 MG PO SCH (09:31)
--- NOTE | 2024-07-24 12:13 | P.PN ---
Subjective Progress Note Date: 07/24/24 This is Riccardo Martinez NP, I'm dictating on behalf of Dr. Appiah's H&P and A&P. Patient was interviewed and examined. Patient is a pleasant 49-year-old male who presented to the hospital with an NSTEMI. Patient is currently status post IVUS RCA, PCI RCA, and aspiration thrombectomy of the RCA. Patient reports that he has no chest pain today. He is breathing okay. He has no significant complaints at this time. GENERAL: Well-appearing, well-nourished and in no acute distress. NECK: Supple without JVD or thyromegaly. LUNGS: Breath sounds clear to auscultation bilaterally. Respiration equal and unlabored. No wheezes, rales or rhonchi. HEART: Regular rate and rhythm without murmurs, rubs or gallops. S1 and S2 heard. EXTREMITIES: Normal range of motion, no edema. No clubbing or cyanosis. P eripheral pulses intact and strong. VITALS: Temp 97.6, pulse 74, respirations 14, blood pressure 125/83, O2 saturation 97% on room air TELEMETRY: Normal sinus rhythm LABS: White count 11.1, hemoglobin 12.1, platelets 246, sodium 137, potassium 3.9, BUN 21, creatinine 1.18, magnesium 2.1, triglycerides 91.6, cholesterol 158, LDL 100.8, HDL 38.9 IMPRESSION: 1. Non-Q wave myocardial infarction 2. Known coronary artery disease status post stenting [address] Keenan 3. Noncompliant with medications 4. Hypertension PLAN: Discontinue hydralazine. Patient may be discharged from the ICU. Further recommendations based on patient's clinical course. Objective - Vital Signs Vital signs: Vital Signs Temp 98.6 F 07/24/24 08:00 Pulse 70 07/24/24 11:00 Resp 19 07/24/24 11:00 BP 97/54 07/24/24 11:00 Pulse Ox 98 07/24/24 11:00 FiO2 Intake & Output 07/23/24 07/24/24 07/24/24 18:59 06:59 18:59 Intake Total 454.975 258.075 127.275 Output Total 2400 500 Balance 454.975 -2141.925 -372.725 Weight 108.862 kg 106.5 kg Intake: IV 310 Intake, IV Titration 144.975 258.075 7.275 Amount Heparin Sod,Pork in 0.45% 93 NaCl 25,000 unit In 0.45 % NaCl 1 250ml.bag @ 9. 186 UNITS/KG/HR 10 mls/hr IV .Q24H [facility] Rx#: [id number] Nitroglycerin-D5w Pmx 50 0 mg In Dextrose/Water 1 250ml.bag @ 0 mls/hr IV . [facility] Rx#: [id number] Nitroglycerin-D5w Pmx 50 51.975 83.075 7.275 mg In Dextrose/Water 1 250ml.bag @ 5 MCG/MIN 1.5 mls/hr IV .Q24H [facility] Rx#: [id number] Sodium Chloride 0.9% 1, 175 000 ml In Empty Bag 1 bag @ 100 mls/hr IV .Q10H [facility] Rx#:[id number] Oral 120 Output: Urine 2400 500 Other: Voiding Method Urinal Urinal - Labs CBC & Chem 7: 07/24/24 03:48 07/24/24 03:48 Labs: Abnormal Lab Results - Last 24 Hours (Table) 07/23/24 07/23/24 07/24/24 Range/Units 15:12 16:28 03:48 WBC 11.1 H (3.8-10.6) k/uL RBC 4.15 L (4.30-5.90) m/uL Hgb 12.1 L (13.0-17.5) gm/dL Hct 36.9 L (39.0-53.0) % Neutrophils # 8.1 H (1.3-7.7) k/uL INR 1.2 H (<1.2) APTT 118.5 H* (22.0-30.0) sec Chloride (98-107) mmol/L BUN (9-20) mg/dL Glucose (74-99) mg/dL POC Glucose (mg/dL) 116 H (70-110) mg/dL Troponin I (0.000-0.034) ng/mL Total Protein (6.3-8.2) g/dL Albumin (3.5-5.0) g/dL 12/14/24 12/14/24 Range/Units 03:48 03:48 WBC (3.8-10.6) k/uL RBC (4.30-5.90) m/uL Hgb (13.0-17.5) gm/dL Hct (39.0-53.0) % Neutrophils # (1.3-7.7) k/uL INR (<1.2) APTT (22.0-30.0) sec Chloride 111 H (98-107) mmol/L BUN 21 H (9-20) mg/dL Glucose 108 H (74-99) mg/dL POC Glucose (mg/dL) (70-110) mg/dL Troponin I 4.480 H* (0.000-0.034) ng/mL Total Protein 5.8 L (6.3-8.2) g/dL Albumin 3.3 L (3.5-5.0) g/dL
[2024-07-24 13:52] VITALS: BMI 30.9
--- NOTE | 2024-07-24 14:09 | P.PN ---
Subjective Progress Note Date: 07/24/24 patient is a 49-year-old gentleman with past medical history significant for hypertension, hyperlipidemia, coronary artery disease with last stent in 2022 who presented the ER because of chest pain. Patient has been noncompliant with his cardiac medications because of cost issues. Patient stated he was all right yesterday when around 3 PM he started having chest pain that was central location, pressure-like, rating to his jaw and left shoulder. Pain was aggravated by exertion and relieved by resting. There is no complaint of palpitation. There is no complaint of shortness of breath. Patient denies any swelling of feet. Because of this chest pain patient became concerned that, and decided to come the ER Initial lab work done in the ER showed WBC 11, hemoglobin 14.2, platelet count 291, sodium 139, potassium 4.5, BUN 18, creatinine 1.21, troponin 0.224 EKG done in the ER showed heart rate of 63, no ST segment elevation or depression seen, no T-wave inversions seen. Chest x-ray done in the ER showed no acute cardiopulmonary process Patient admitted to internal medicine service 07/24. Patient seen and examined. Cardiac cath done showed proximal RCA 95% stenosis, mid LAD 60-70% stenosis, mid to distal LAD 100% stenosis, ramus 20-30% stenosis, circumflex 70% stenosis and patent distal circumflex and ramus stents with PCI RCA with a 4.0 x 48mm Xience ELEN,. States he feels much better. REVIEW OF SYSTEMS: CONSTITUTIONAL: No fever, no malaise,. CARDIOVASCULAR: No chest pain, no palpitations, no syncope. PULMONARY: No shortness of breath, no cough, GASTROINTESTINAL: No diarrhea, no nausea, no vomiting, no abdominal pain. NEUROLOGICAL: No headaches, no weakness, PHYSICAL EXAMINATION: GENERAL: The patient is alert and oriented x3, not in any acute distress. Well developed, well nourished. HEENT: Pupils are round and equally reacting to light. EOMI. No scleral icterus. No conjunctival pallor. Normocephalic, atraumatic. No pharyngeal erythema. No thyromegaly. CARDIOVASCULAR: S1 and S2 present. No murmurs, rubs, or gallops. PULMONARY: Chest is clear to auscultation, no wheezing or crackles. ABDOMEN: Soft, nontender, nondistended, normoactive bowel sounds. No palpable organomegaly. MUSCULOSKELETAL: No joint swelling or deformity. EXTREMITIES: No cyanosis, clubbing, or pedal edema. NEUROLOGICAL: Gross neurological examination did not reveal any focal deficits. SKIN: No rashes. Assessment and plan NSTEMI Hypertension Hyperlipidemia History of coronary artery disease Monitor vital signs Monitor CBC Monitor CMP Continue telemetry monitoring Cardiac cath done showed proximal RCA 95% stenosis, mid LAD 60-70% stenosis, mid to distal LAD 100% stenosis, ramus 20-30% stenosis, circumflex 70% stenosis and patent distal circumflex and ramus stents with PCI RCA with a 4.0 x 48mm Xience ELEN, Continue aspirin, Brilinta, Lipitor Continue losartan Cardiology following Labs and medication were reviewed.. Continue same treatment. Continue with symptomatic treatment. Resume home medication. Monitor labs and vitals. DVT and GI prophylaxis. Further recommendations as per clinical course of the patient Dictation was produced using [employer] dictation software. please excuse any grammatical, word or spelling errors. Objective - Vital Signs Vital signs: Vital Signs Temp 97.6 F 07/24/24 12:00 Pulse 63 07/24/24 13:00 Resp 16 07/24/24 13:00 BP 111/77 07/24/24 13:00 Pulse Ox 98 07/24/24 13:00 FiO2 Intake & Output 07/23/24 07/24/24 07/24/24 18:59 06:59 18:59 Intake Total 454.975 258.075 127.275 Output Total 2400 1000 Balance 454.975 -2141.925 -872.725 Weight 108.862 kg 106.5 kg 106.5 kg Intake: IV 310 Intake, IV Titration 144.975 258.075 7.275 Amount Heparin Sod,Pork in 0.45% 93 NaCl 25,000 unit In 0.45 % NaCl 1 250ml.bag @ 9. 186 UNITS/KG/HR 10 mls/hr IV .Q24H [facility] Rx#: [id number] Nitroglycerin-D5w Pmx 50 0 mg In Dextrose/Water 1 250ml.bag @ 0 mls/hr IV . [facility] Rx#: [id number] Nitroglycerin-D5w Pmx 50 51.975 83.075 7.275 mg In Dextrose/Water 1 250ml.bag @ 5 MCG/MIN 1.5 mls/hr IV .Q24H [facility] Rx#: [id number] Sodium Chloride 0.9% 1, 175 000 ml In Empty Bag 1 bag @ 100 mls/hr IV .Q10H [facility] Rx#:[id number] Oral 120 Output: Urine 2400 1000 Other: Voiding Method Urinal Urinal - Labs CBC & Chem 7: 07/24/24 03:48 07/24/24 03:48 Labs: Abnormal Lab Results - Last 24 Hours (Table) 07/23/24 07/23/24 07/24/24 Range/Units 15:12 16:28 03:48 WBC 11.1 H (3.8-10.6) k/uL RBC 4.15 L (4.30-5.90) m/uL Hgb 12.1 L (13.0-17.5) gm/dL Hct 36.9 L (39.0-53.0) % Neutrophils # 8.1 H (1.3-7.7) k/uL INR 1.2 H (<1.2) APTT 118.5 H* (22.0-30.0) sec Chloride (98-107) mmol/L BUN (9-20) mg/dL Glucose (74-99) mg/dL POC Glucose (mg/dL) 116 H (70-110) mg/dL Troponin I (0.000-0.034) ng/mL Total Protein (6.3-8.2) g/dL Albumin (3.5-5.0) g/dL 07/24/24 07/24/24 Range/Units 03:48 03:48 WBC (3.8-10.6) k/uL RBC (4.30-5.90) m/uL Hgb (13.0-17.5) gm/dL Hct (39.0-53.0) % Neutrophils # (1.3-7.7) k/uL INR (<1.2) APTT (22.0-30.0) sec Chloride 111 H (98-107) mmol/L BUN 21 H (9-20) mg/dL Glucose 108 H (74-99) mg/dL POC Glucose (mg/dL) (70-110) mg/dL Troponin I 4.480 H* (0.000-0.034) ng/mL Total Protein 5.8 L (6.3-8.2) g/dL Albumin 3.3 L (3.5-5.0) g/dL
--- NOTE | 2024-07-24 14:32 | CA ---
Transthoracic Echo Report Name: Guilherme Mcqueen Age: 49 Gender: M : 1975 Exam Date: 07/24/2024 07:33 Exam Location: [facility] Ht (in): 73 Wt (lb): 240 Ordering Physician: Osbaldo Taveras MD Attending/Referring Phys: Manager Balance Meagan Hernandez RDCS Procedure CPT: Indications: Chest Pain Cardiac Hx: Technical Quality: Good Contrast 1: Total Dose (mL): Contrast 2: Total Dose (mL): MEASUREMENTS (Male / Female) Normal Values 2D ECHO LV Diastolic Diameter PLAX 6.1 cm 4.2 - 5.9 / 3.9 - 5.3 cm LV Systolic Diameter PLAX 4.1 cm IVS Diastolic Thickness 1.4 cm 0.6 - 1.0 / 0.6 - 0.9 cm LVPW Diastolic Thickness 1.3 cm 0.6 - 1.0 / 0.6 - 0.9 cm LV Relative Wall Thickness 0.4 LVOT Diameter 2.5 cm LV Diastolic Volume MOD BP 190.6 cm??? 67 - 155 / 56 - 104 cm??? LV Systolic Volume MOD BP 84.8 cm??? 22 - 58 / 19 - 49 cm??? LV Ejection Fraction MOD BP 55.5 % >= 55 % LV Cardiac Index MOD BP 2603.8 cm???/min???m??? LV Diastolic Volume MOD 4C 178.2 cm??? LV Systolic Volume MOD 4C 78.5 cm??? LV Ejection Fraction MOD 4C 55.9 % LV Cardiac Index MOD 4C 2455.3 cm???/min???m??? LV Diastolic Length 4C 9.7 cm LV Systolic Length 4C 7.8 cm LV Diastolic Volume MOD 2C 193.9 cm??? LV Systolic Volume MOD 2C 86.2 cm??? LV Ejection Fraction MOD 2C 55.6 % LV Cardiac Index MOD 2C 2652.2 cm???/min???m??? LV Diastolic Length 2C 10.2 cm LV Systolic Length 2C 8.6 cm LA Volume 84.1 cm??? 18 - 58 / 22 - 52 cm??? LA Volume Index 35.1 cm???/m??? 16 - 28 cm???/m??? Ascending Aorta Diameter 3.5 cm DOPPLER AV Peak Velocity 194.0 cm/s AV Peak Gradient 15.0 mmHg AV Mean Velocity 131.3 cm/s AV Mean Gradient 7.7 mmHg AV Velocity Time Integral 36.7 cm LVOT Peak Velocity 143.4 cm/s LVOT Peak Gradient 8.2 mmHg LVOT Velocity Time Integral 27.1 cm LVOT Stroke Volume 132.1 cm??? LVOT Stroke Volume Index 56.8 ml/m??? LVOT Cardiac Index 3252.4 cm???/min???m??? AV Area Cont Eq vti 3.6 cm??? AV Area Cont Eq pk 3.6 cm??? MV Area PHT 3.7 cm??? Mitral E Point Velocity 72.5 cm/s Mitral A Point Velocity 67.6 cm/s Mitral E to A Ratio 1.1 MV Deceleration Time 203.4 ms TR Peak Velocity 252.5 cm/s TR Peak Gradient 25.5 mmHg Right Atrial Pressure 10.0 mmHg Pulmonary Artery Systolic Pressu 35.5 mmHg Right Ventricular Systolic Press 35.5 mmHg PV Peak Velocity 93.9 cm/s PV Peak Gradient 3.5 mmHg FINDINGS Left Ventricle Left ventricular ejection fraction is estimated at 55 %. Mildly increased septal wall thickness. Mildly increased left ventricular diastolic diameter. Moderately increased left ventricular diastolic volume. Severely increased left ventricular systolic volume. Regional variability. Right Ventricle Normal right ventricular size and function. Mild pulmonary hypertension. Right Atrium Normal right atrial size. Left Atrium Moderately increased left atrial volume. Mildly increased left atrial area. Mitral Valve Structurally normal mitral valve. No evidence for mitral valve prolapse. No mitral stenosis. Trace mitral regurgitation. Aortic Valve Trileaflet aortic valve. No aortic valve stenosis or regurgitation. Tricuspid Valve Structurally normal tricuspid valve. No tricuspid stenosis. Mild tricuspid regurgitation. Pulmonic Valve Pulmonic valve not well visualized. No pulmonic stenosis. Mild pulmonic regurgitation. Pericardium No pericardial effusion. Aorta Normal size aortic root and proximal ascending aorta. CONCLUSIONS Diagnosis: Acute myocardial infarction 2D echo shows left ventricular hypertrophy with preserved systolic function ejection fraction 50 to 55% with septal mild inferior wall hypokinesis Previewed by: Dr. Victor Hugo Appiah MD (Electronically Signed) Final Date: 24 July 2024 14:30
[2024-07-25 09:02] VITALS: RESP 18
--- NOTE | 2024-07-25 12:40 | P.PN ---
Subjective Progress Note Date: 07/25/24 This is Riccardo Martinez NP, I'm dictating on behalf of Dr. Appiah's H&P and A&P. Patient was interviewed and examined. Patient is a pleasant 49-year-old male who presented to the hospital with an NSTEMI. Patient is status post IVUS RCA, PCI RCA, and aspiration thrombectomy of the RCA. Patient reports no chest pain, dizziness, shortness of breath. Patient been walking around the room without incident. GENERAL: Well-appearing, well-nourished and in no acute distress. NECK: Supple without JVD or thyromegaly. LUNGS: Breath sounds clear to auscultation bilaterally. Respiration equal and unlabored. No wheezes, rales or rhonchi. HEART: Regular rate and rhythm without murmurs, rubs or gallops. S1 and S2 heard. EXTREMITIES: Normal range of motion, no edema. No clubbing or cyanosis. P eripheral pulses intact and strong. VITALS: Temp 97.6, pulse 58, respirations 18, blood pressure 114/74, O2 saturation 97% on room air TELEMETRY: Sinus mechanism LABS: White count 11.1, hemoglobin 12.1, platelets 246, sodium 137, potassium 3.9, BUN 21, creatinine 1.18 IMPRESSION: 1. Non-Q wave myocardial infarction 2. Known coronary artery disease status post stenting [address] Juan streeter 3. Noncompliant with medications 4. Hypertension PLAN: Continue aspirin 81 mg daily. Continue atorvastatin 80 mg daily. Continue carvedilol 6.25 mg twice daily. Continue losartan 50 mg daily. Continue Brilinta 90 mg twice daily. Patient may be discharged from a cardiology standpoint. Patient should follow-up with Dr. Keenan as an outpatient. Objective - Vital Signs Vital signs: Vital Signs Temp 97.6 F 07/25/24 08:00 Pulse 59 L 07/25/24 09:00 Resp 18 07/25/24 08:00 BP 114/74 07/25/24 08:00 Pulse Ox 97 07/25/24 08:00 FiO2 Intake & Output 07/24/24 07/25/24 07/25/24 18:59 06:59 18:59 Intake Total 127.275 Output Total 1350 Balance -1222.725 Weight 106.5 kg Intake: Intake, IV Titration 7.275 Amount Nitroglycerin-D5w Pmx 50 7.275 mg In Dextrose/Water 1 250ml.bag @ 5 MCG/MIN 1.5 mls/hr IV .Q24H [facility] Rx#: [id number] Oral 120 Output: Urine 1350 Other: Voiding Method Urinal Urinal Urinal - Labs CBC & Chem 7: 07/24/24 03:48 07/24/24 03:48
--- NOTE | 2024-07-25 13:11 | P.DS ---
Providers Date of admission: 07/22/24 22:48 Expected date of discharge: 07/25/24 Attending physician: Sonido Lucas Consults: 07/22/24 22:44 Consult Physician Urgent Consulting Provider: Anuj Hurst Consult Reason/Comments: nstemi Do you want consulting provider notified?: Yes, Notify in am 07/23/24 14:55 Consult Physician Routine Consulting Provider: [facility] Consult Reason/Comments: Post Interventional Patient Do you want consulting provider notified?: Already Contacted Primary care physician: Stated None Hospital Course: Discharge diagnoses; NSTEMI Hypertension Hyperlipidemia History of coronary artery disease Hospital course; patient is a 49-year-old gentleman with past medical history significant for hypertension, hyperlipidemia, coronary artery disease with last stent in 2022 who presented the ER because of chest pain. Patient has been noncompliant with his cardiac medications because of cost issues. Patient stated he was all right yesterday when around 3 PM he started having chest pain that was central location, pressure-like, rating to his jaw and left shoulder. Pain was aggravated by exertion and relieved by resting. There is no complaint of palpitation. There is no complaint of shortness of breath. Patient denies any swelling of feet. Because of this chest pain patient became concerned that, and decided to come the ER Initial lab work done in the ER showed WBC 11, hemoglobin 14.2, platelet count 291, sodium 139, potassium 4.5, BUN 18, creatinine 1.21, troponin 0.224 EKG done in the ER showed heart rate of 63, no ST segment elevation or depression seen, no T-wave inversions seen. Chest x-ray done in the ER showed no acute cardiopulmonary process Patient admitted to internal medicine service 07/24. Patient seen and examined. Cardiac cath done showed proximal RCA 95% stenosis, mid LAD 60-70% stenosis, mid to distal LAD 100% stenosis, ramus 20-30% stenosis, circumflex 70% stenosis and patent distal circumflex and ramus stents with PCI RCA with a 4.0 x 48mm Xience ELEN,. States he feels much better. 07/25. Patient seen and examined. Patient was cleared for discharge by cardiology, prescription for aspirin Brilinta was given by cardiology. Patient to follow-up outpatient with PCP PHYSICAL EXAMINATION: GENERAL: The patient is alert and oriented x3, not in any acute distress. Well developed, well nourished. HEENT: Pupils are round and equally reacting to light. EOMI. No scleral icterus. No conjunctival pallor. Normocephalic, atraumatic. No pharyngeal erythema. No thyromegaly. CARDIOVASCULAR: S1 and S2 present. No murmurs, rubs, or gallops. PULMONARY: Chest is clear to auscultation, no wheezing or crackles. ABDOMEN: Soft, nontender, nondistended, normoactive bowel sounds. No palpable organomegaly. MUSCULOSKELETAL: No joint swelling or deformity. EXTREMITIES: No cyanosis, clubbing, or pedal edema. NEUROLOGICAL: Gross neurological examination did not reveal any focal deficits. SKIN: No rashes. Dictation was produced using [employer] dictation software. please excuse any grammatical, word or spelling errors. Patient Condition at Discharge: Stable Plan - Discharge Summary Discharge Rx Participant: Yes New Discharge Prescriptions: New Ticagrelor [Brilinta] 90 mg PO BID 30 Days #0 tab carvediloL [Coreg] 6.25 mg PO BID-W/MEALS 30 Days #60 tab Aspirin 81 mg PO DAILY #0 tab Losartan [Cozaar] 50 mg PO DAILY 30 Days #30 tab Atorvastatin [Lipitor] 80 mg PO DAILY 30 Days #30 tab Nitroglycerin Sl Tabs [Nitrostat] 0.4 mg SUBLINGUAL Q5M PRN #30 tab PRN Reason: Chest Pain Discharge Medication List Aspirin 81 mg PO DAILY #0 tab 07/25/24 [Rx] Atorvastatin [Lipitor] 80 mg PO DAILY 30 Days #30 tab 07/25/24 [Rx] Losartan [Cozaar] 50 mg PO DAILY 30 Days #30 tab 07/25/24 [Rx] Nitroglycerin Sl Tabs [Nitrostat] 0.4 mg SUBLINGUAL Q5M PRN #30 tab 07/25/24 [Rx] Ticagrelor [Brilinta] 90 mg PO BID 30 Days #0 tab 07/25/24 [Rx] carvediloL [Coreg] 6.25 mg PO BID-W/MEALS 30 Days #60 tab 07/25/24 [Rx] Follow up Appointment(s)/Referral(s): [facility] [NON-STAFF] - 1 Week [facility] [NON-STAFF] - 1 Week None,Stated [Primary Care Provider] - 1-2 days Nestor Keenan DO [STAFF PHYSICIAN] - 1 Week Discharge/Stand Alone Forms: Area PCPs Discharge Disposition: HOME SELF-CARE
[2024-07-25 13:23] VITALS: BP 145/98; PULSE 70; TEMP 97.9
[2024-07-26 03:56] LABS: Apolipoprotein A1 117 mg/dL (110 - 205)
== END 2024-07-25 14:05 | disposition home or self-care (01) | DRG 322 ==
LOC: EC 19:36 → 3SCARD 22:48 → 2SICU 07-23 14:49
PROVIDERS: ADMIT Hospitalist; ATTEND Hospitalist
PROC: B240ZZ3 Ultrasonography of Single Coronary Artery, Intravascular (ICD-10-PCS; 2024-07-23)
PROC: 027034Z Dilation of Coronary Artery, One Artery with Drug-eluting Intraluminal Device, Percutaneous Approach (ICD-10-PCS; principal; 2024-07-23 21:45)
PROC: 02C03ZZ Extirpation of Matter from Coronary Artery, One Artery, Percutaneous Approach (ICD-10-PCS; 2024-07-23 21:45)
PROC: 4A023N7 Measurement of Cardiac Sampling and Pressure, Left Heart, Percutaneous Approach (ICD-10-PCS; 2024-07-23 21:45)
PROC: B2111ZZ Fluoroscopy of Multiple Coronary Arteries using Low Osmolar Contrast (ICD-10-PCS; 2024-07-23 21:45)
DX: I21.4 Non-ST elevation (NSTEMI) myocardial infarction (principal); I10 Essential (primary) hypertension; E78.5 Hyperlipidemia, unspecified; I25.10 Atherosclerotic heart disease of native coronary artery without angina pectoris; I25.2 Old myocardial infarction; F17.200 Nicotine dependence, unspecified, uncomplicated; Z88.8 Allergy status to other drugs, medicaments and biological substances; Z91.148 Patient's other noncompliance with medication regimen for other reason; Z88.0 Allergy status to penicillin; Z59.86 Financial insecurity; Z79.02 Long term (current) use of antithrombotics/antiplatelets; Z79.82 Long term (current) use of aspirin
CPT/HCPCS: 36415; 71046; 80053; 80061; 82172; 83695; 83735; 84484; 85025; 85610; 85730; 92973; 92978; 93005; 93306; 93458; 96365; 96366; 99291

== ENCOUNTER 2024-10-10 13:20 | Emergency (ER) | payer BC ==
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
[2024-10-10] MEDS: DIPH,PERTUS(ACELL)TETVAC-LF 0.5 ML VIAL IM ONE (14:34)
[2024-10-10] MEDS: SODIUM CHLORIDE 0.9% 1,000 ML IV STA (14:34)
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
[2024-10-10 14:42] LABS: Basophils % (A) 0 %; Eosinophils # (A) 0.2 k/uL (0-0.7); Eosinophils % (A) 1 %; HGB 9.9 gm/dL (13.0-17.5); Lymphocytes # (A) 2.4 k/uL (1.0-4.8); Lymphocytes % (A) 14 %; MCH 28.9 pg (25.0-35.0); MCHC 32.1 g/dL (31.0-37.0); MCV 90.1 fL (80.0-100.0); Mean Platelet Volume 8.1; Monocytes # (A) 0.5 k/uL (0-1.0); Monocytes % (A) 3 %; Neutrophils % (A) 81 %; Platelet Count 361 k/uL (150-450); RBC 3.44 m/uL (4.30-5.90); RDW 14.6 % (11.5-15.5); WBC 17.2 k/uL (3.8-10.6)
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
[2024-10-10] MEDS: ONDANSETRON 4 MG/2 ML VIAL IVP STA (14:45)
[2024-10-10] MEDS: FAMOTIDINE 20 MG/2 ML VIAL IV STA (14:45)
[2024-10-10 15:05] VITALS: TEMP 98.1
[2024-10-10] MEDS: ONDANSETRON 4 MG ODT STARTER PACK 2 TAB BTL PO STA (15:35)
[2024-10-10 15:50] VITALS: BP 135/81; PULSE 66; RESP 22
== END 2024-10-10 15:50 | disposition home or self-care (01) ==
LOC: EC 13:20
DX: S00.11XA Contusion of right eyelid and periocular area, initial encounter (principal); S09.90XA Unspecified injury of head, initial encounter; I11.9 Hypertensive heart disease without heart failure; I25.10 Atherosclerotic heart disease of native coronary artery without angina pectoris; Z87.891 Personal history of nicotine dependence; Z88.0 Allergy status to penicillin; Z88.4 Allergy status to anesthetic agent; Z88.8 Allergy status to other drugs, medicaments and biological substances; Z23 Encounter for immunization; Y04.8XXA Assault by other bodily force, initial encounter; Y92.59 Other trade areas as the place of occurrence of the external cause
CPT/HCPCS: 36415; 85025; 72125; 70486; 70450; 90715; 99284; 90471; 96374; 96375; 96361; J2405; J3490; S0119